=== PATIENT | male | born 1945 | race Caucasian/White ===

== ENCOUNTER 2018-08-29 00:01 | Outpatient (CLI) | payer MEDICARE, OTHER, SELFPAY ==
--- NOTE | 2018-08-29 08:15 | MERGEMPI_ITS ---
*[facility]* *[facility]* [address] [place] [address] Myocardial Perfusion Imaging - SPECT Waylon protocol Date of study: 08/29/2018 *PATIENT PRESENTATION* Height: 180.3cm (71in) Blood Pressure: Weight: 86.4kg (190lb) BSA: 2.09m^2 Referring physician: Heather Pineda Ordering physician: Ajay Kwan MD Impressions: - Normal perfusion by Tc99m Sestamibi Imaging. - Low normal function with septal HK. Summary: 1. Myocardial perfusion imaging: No myocardial perfusion defects noted. 2. The calculated left ventricular ejection fraction after stress: 49%. LV global systolic function is low normal. There is mild hypokinesis involving the anteroseptal and basal and mid inferoseptal wall(s) of the left ventricle. 3. Stress ECG conclusions: The stress ECG is negative. The sensitivity of the exercise part of this test is limited by a failure to achieve target heart rate. 4. Stress: The target heart rate was not achieved. The patient experienced no chest pain during stress. Indication: I25.2. History: REASON FOR TESTING: PATIENT REPORTS HE HAS BEEN HAVING RIGHT ARM ACHING ACCOMPANIED WITH RIGHT HIP ACHING PAIN WITH ACTIVITY OVER THE LAST 2 YEARS THAT HAS GOTTEN WORSE RECENTLY. HE STATES ACHING PAIN, 12/18, GOES AWAY WHEN HE STOPS TO REST. HE DENIES CHEST PAIN UPON ARRIVAL TO TESTING TODAY. SIGNIFICANT PAST MEDICAL HISTORY: AFLUTTER, NSTEMI, CAD, AORTIC VALVE RFEPLACEDMENT, LEFT NEPHRECTOMY. SMOKING STATUS: QUIT 1969. SMOKED FOR 15 YEARS--1/2 PPD. EXERCISE ROUTINE: DAILY ADL'S. ALLERGIES: NO KNOWN ALLERGIES. MEDICATIONS: SILDENAFIL 100 MG PRN, PANTOPRAZOLE 40 MG DAILY, LEVOTHYROXINE 112 MCG DAILY, CARVEDILOL 12.5 MG AM--6.25 MG EVENING, ATORVASTATIN 40 MG DAILY, ASPIRIN 81 MG DAILY, ALLOPURINOL 100 DAILY, TEGRETOL XR 400 MG BID, TORSEMIDE 10 MG DAILY, ACETAMINOPHEN 325 MG PRN.. Imaging Technique: Protocol: Waylon protocol. Acquisition: Gated SPECT; 1 day - rest/stress. The patient was imaged in the supine position. Attenuation correction used. Isotope administration: - Rest. Tc[99m]-sestamibi. Dose: 10.5mCi. Injection time: 08:15 AM. Injection to stress time: 00:45. - Stress. Tc[99m]-sestamibi. Dose: 32.5mCi. Injection time: 09:40 AM. 1-2 min before end of exercise Baseline ECG: SINUS BRADYCARDIA. HR 49. INITIAL BP WAS ELEVATED. Stress protocol: + +---+ + + !Stage !HR !BP (mmHg) !Comments ! + +---+ + + !Baseline supine !49 !108/86 (93) ! ! + +---+ + + !Baseline standing !60 !120/82 (95) ! ! + +---+ + + !Stage I; 1.7mph, 10degrees; 3 min!101!140/80 (100)! ! + +---+ + + !Peak stress !108! ! ! + +---+ + + !Recovery; 1 min !75 !146/84 (105)! ! + +---+ + + !Recovery; 3 min !62 !142/80 (101)! ! + +---+ + + !Recovery; 6 min !59 !120/84 (96) ! ! + +---+ + + !Recovery; 9 min !57 !120/86 (97) ! ! + +---+ + + !1 min !---! !Inject Regadenoson.! + +---+ + + * Stress results: STRESS TEST ENDED IN 3 MINUTES 48 SECONDS DUE TO SOB. NORMAL HEART RATE AND BLOOD PRESSURE RESPONSE TO EXERCISE TESTING. BLOOD PRESSURE INITIALLY HIGH WITH LYING DOWN. THEN DROPPED WHEN STANDING. MAX HEART RATE: 108 74 % OF TARGET HEART RATE ACHIEVED. MET'S: 5.59 NO ECTOPY. NO ANGINA. NO SIGNIFICANT ST SEGMENT CHANGES. TRANSITIONED TO LEXISCAN STRESS DUE TO PATIENT FEELING SOB AND NOT ACHEIVING 85% OF TARGET HEART RATE. STRESS TEST ENDED IN 10 MINUTES 22 SECONDS. NORMAL HEART RATE AND BLOOD PRESSURE RESPONSE TO LEXISCAN INJECTION. NO ECTOPY. NO ANGINA. MILD DOWNSLOPING ST SEGMENTS AT 3 MINUTES 47 SECONDS POST LEXICAN INJECTION. RETURNED TO BASELINE AT 9 MINUTES 4 SECONDS POST LEXISCAN INJECTION. Maximal heart rate during stress was 108bpm (74% of maximal predicted heart rate). The maximal predicted heart rate was 145bpm. The target heart rate was not achieved. The rate-pressure product for the peak heart rate and blood pressure was 69129cn Hg/min. The patient experienced no chest pain during stress. Stress ECG: The stress ECG is negative. The sensitivity of the exercise part of this test is limited by a failure to achieve target heart rate. Myocardial perfusion: Imaging information: gated. Left ventricular size is normal. Right ventricular size is normal. No myocardial perfusion defects noted. Ventricular Function (Wall Motion): The calculated left ventricular ejection fraction after stress: 49%. LV global systolic function is low normal. There is mild hypokinesis involving the anteroseptal and basal and mid inferoseptal wall(s) of the left ventricle. Right ventricular function is normal. Study data: Heather Pineda MD supervised and was readily available during the procedure. This study was interpreted by [facility]. Study status: Routine. Consent: The risks, benefits, and alternatives to the procedure were explained to the patient and informed consent was obtained. Procedure: Initial setup. A baseline ECG was recorded. Surface ECG leads and manual cuff blood pressure measurements were monitored. Heart sounds: Normal. Lung sounds: Normal. Treadmill exercise testing was performed using the Waylon protocol. Study completion: All catheters inserted during the procedure were removed. The patient tolerated the procedure well and was discharged from the lab. Discharge: The patient left the laboratory in stable condition. Birthdate: Patient birthdate: 1945. Sex: Gender: male. Study date: Study date: 08/29/2018. Study time: 00:01 AM. Signature Documentation: - The imaging portion of this study was interpreted by [employer] Communication Skills Instructor Heather Pineda MD. - The Stress ECG portion of this study was interpreted by Heather Pineda MD. Electronically signed by Heather Pineda 08/29/2018 17:17
[2018-08-29] MEDS: Regadenoson 0.4 MG/5 ML SYR IVP (09:00)
== END 2018-08-29 00:21 ==
PROVIDERS: PCP Internal Medicine; Visit Provider Internal Medicine
DX: I25.2 Old myocardial infarction (principal); I48.92 Unspecified atrial flutter; I25.10 Atherosclerotic heart disease of native coronary artery without angina pectoris; Z95.2 Presence of prosthetic heart valve; Z87.891 Personal history of nicotine dependence
CPT/HCPCS: 78452; 93016; 93018; 93017; J2785

== ENCOUNTER 2018-10-30 16:31 | Outpatient (REF) | payer MEDICARE, OTHER, SELFPAY ==
[2018-10-30 22:02] LABS: Anion Gap 11.7 mmol/L (3-11); BUN 39 mg/dL (7-18); CO2 27.3 mmol/L (21.0-32.0); CREATININE 1.86 mg/dL (0.70-1.30); Calcium 9.1 mg/dL (8.5-10.1); Chloride 101 mmol/L (98-107); Estimated GFR 35.59 (mL/min/1.73m2); Glucose 108 mg/dL (70-100); Potassium 4.2 mmol/L (3.5-5.1); Sodium 140 mmol/L (136-145); TSH 14.69 uIU/mL (0.36-3.74)
== END 2018-10-30 16:51 ==
LOC: NCHCN 16:31
PROVIDERS: PCP Internal Medicine; Visit Provider Internal Medicine
DX: I10 Essential (primary) hypertension (principal); E30.9 Disorder of puberty, unspecified
CPT/HCPCS: 80048; 84443

== ENCOUNTER 2019-01-08 16:12 | Outpatient (REF) | payer MEDICARE, OTHER, SELFPAY ==
[2019-01-08 21:44] LABS: Anion Gap 8.2 mmol/L (3-11); BUN 26 mg/dL (7-18); CO2 28.8 mmol/L (21.0-32.0); CREATININE 1.65 mg/dL (0.70-1.30); Calcium 8.6 mg/dL (8.5-10.1); Chloride 105 mmol/L (98-107); Estimated GFR 40.87 (mL/min/1.73m2); Glucose 85 mg/dL (70-100); Potassium 4.2 mmol/L (3.5-5.1); Sodium 142 mmol/L (136-145); TSH 3.62 uIU/mL (0.36-3.74)
== END 2019-01-08 16:32 ==
LOC: NCHCN 16:12
PROVIDERS: PCP Internal Medicine; Visit Provider Internal Medicine
DX: I10 Essential (primary) hypertension (principal); E03.9 Hypothyroidism, unspecified
CPT/HCPCS: 80048; 84443

== ENCOUNTER 2019-02-13 02:02 | Outpatient (CLI) | payer MEDICARE, OTHER, SELFPAY ==
--- NOTE | 2019-02-13 15:45 | DI.MRI_ITS ---
EXAM: MR ABDOMEN WO CLINICAL HISTORY: RT FLANK PAIN,H/O RT NEPHRECTOMY CHILD,WORSENING PAIN OVER THE INCISION. TECHNIQUE: Multiplanar multisequence MRI was performed. COMPARISON: No exams were available for comparison FINDINGS: MR examination of the was performed to evaluate reported symptomatology related to old right flank in cision in a patient who is post right nephrectomy. Note is made of 4 cm in diameter infrarenal abdominal aortic aneurysm. Left kidney unremarkable in appearance with an incidental 13 millimeter cyst. Adrenals not well visualized but grossly unremarkable. Visualized liver and spleen unremarkable. No abdominal wall mass. No evident retroperitoneal adenopathy. No significant abdominal wall hernia in this area by MR criteria. IMPRESSION: No specific abnormality associated with area of old right nephrectomy incision. Incidental 4 cm in d iameter abdominal aortic aneurysm. Incidental 13 millimeter left renal cyst.
== END 2019-02-13 02:22 ==
PROVIDERS: PCP Internal Medicine; Visit Provider Physician Assistant Medical
DX: R10.31 Right lower quadrant pain (principal); Z98.890 Other specified postprocedural states; I71.4 Abdominal aortic aneurysm, without rupture; Z90.5 Acquired absence of kidney
CPT/HCPCS: 74181

== ENCOUNTER 2019-03-19 01:14 | Outpatient (CLI) | payer MEDICARE, OTHER, SELFPAY ==
--- NOTE | 2019-03-19 09:53 | DI.RAD_ITS ---
EXAM: XR RIBS BI INCLUDE CHEST INDICATION: RIB PAIN RT, R07.81, RIB PAIN LT. COMPARISON: PORTABLE CHEST ONE VIEW from 04/24/2015 TECHNIQUE: 2D digital imaging was performed. FINDINGS: The heart size is normal. An aortic valve prosthesis and sternal wires are again noted. The lungs ap pear clear. There is no pneumothorax. No thoracic compression fractures are seen. Multiple views o f both ribs were performed. No rib fractures are visible. Degenerative changes are noted in both sh oulders, greater on the right. IMPRESSION: No visible rib fractures. No acute abnormality.
== END 2019-03-19 01:34 ==
PROVIDERS: PCP Internal Medicine; Visit Provider Internal Medicine
DX: R07.81 Pleurodynia (principal); Z95.2 Presence of prosthetic heart valve
CPT/HCPCS: 71046; 71110

== ENCOUNTER 2019-04-02 05:15 | Outpatient (CLI) | payer MEDICARE, OTHER, SELFPAY ==
--- NOTE | 2019-04-02 10:46 | DI.US_ITS ---
EXAM: US SOFT TISS ABD WALL/LOW BACK CLINICAL HISTORY: SUBCUTANEOUS MASS, R22.9, LUMP ON RT LOWER BACK X 2 YEARS CAUSES PAIN IN RT ARM AN D HIP, SOFT TISSUE US RT LUMBAR AREA TECHNIQUE: Ultrasound performed using standard protocol. COMPARISON: HERNIA INGUINAL from 01/06/2017 FINDINGS: Sonographic evaluation of the right flank/lower back was performed. No cystic or solid masses are se en sonographically. IMPRESSION: Negative ultrasound.
== END 2019-04-02 05:35 ==
PROVIDERS: PCP Internal Medicine; Visit Provider Internal Medicine
DX: R22.2 Localized swelling, mass and lump, trunk (principal)
CPT/HCPCS: 76705

== ENCOUNTER 2019-09-26 03:05 | Outpatient (CLI) | payer MEDICARE, OTHER, SELFPAY ==
--- NOTE | 2019-09-26 | DI.US_ITS ---
EXAM: US PAIN CLINIC NEEDLE GUIDANCE CLINICAL HISTORY: TPI, LOW BACK PAIN, PAIN RT ARM AND HIP, MASS RT SIDE. TECHNIQUE: Ultrasound was performed using standard protocol. COMPARISON: No exams were available for comparison FINDINGS: Sonographic assessment utilizing grayscale and color Doppler imaging was performed and targeted to th e area of clinical concern. Ultrasound was provided for guidance with pain clinic injection of the r ight lower back. Please see procedure note for details. DATA REPOSITORY:
[2019-09-26 12:11] VITALS: BP 154/72; PULSE 53; RESP 14; TEMP 36.3; O2SAT 98
[2019-09-26 12:43] VITALS: PULSE 55; O2SAT 100
[2019-09-26] MEDS: Lidocaine 2% Pres-Free 5 ML VIAL IJ (12:45)
--- NOTE | 2019-09-26 12:46 | PDOC.PAIN_ITS ---
Pain Clinic Procedure Note Procedure Note Procedure Note: ULTRASOUND GUIDED RIGHT Quadratus Lumborum trigger point INJECTIONS Pre-Procedural Evaluation: AAYUSH DAVIS has been referred to the [facility] for an Ultrasound Guided right quadratus lumborum trigger point injection for a chief complaint of right lower back/flank pain. Pre-procedure Pain Score: 6/10 DX: Muscle pain Patient was interviewed and the medical record reviewed. There were no medical, pharmacologic, radiographic, or other structural contraindications to preforming an ultrasound guided injection. Risks and expected side effects as well as potential benefits of the procedure were reviewed. The patient consent form was signed and witnessed. Standard time-out procedure was performed. The use of direct ultrasound visualization of the needle (rather than a non-guided injection) was required to increase patient safety by excluding inadvertent intramuscular, intratendinous, or intraneural needle placement and minimizing bleeding by avoiding osteochondral or vascular injury from the needle. Additionally, the increased accuracy of placement may increase clinical effectiveness and will allow higher diagnostic specificity when evaluating effectiveness of this injection. Procedure Description: The patient was placed in the prone position and automated blood pressure cuff and pulse oximeter applied for monitoring during the procedure and recorded in the medical record. Pre-injection ultrasound scanning of the area of interest was performed using linear transducer, identifying relevant anatomy, landmarks, and neurovascular structures allowing for optimal needle path. The site was then prepared in the usual sterile fashion, using thorough Chlorhexadine preparation of the skin and sterile draping. The same ultrasound transducer was then passed into the sterile field using sterile probe cover and sterile ultrasound gel. The injection target was again visualized. Skin and subcutaneous tissues were anesthetized with 2 mL of 1% Lidocaine. A 21 guage Pajunk 100mm needle was placed under live ultrasound guidance, using an in-plane approach, to the target area. After visualization of the needle tip at the target area, 3 cc of 2% Lidocaine was delivered after negative aspiration for blood. Several passes were made through the muscle belly, making sure not to make it to the anterior aspect of the muscle. Ultrasound images were captured and stored for documentation purposes. Post-procedure Pain Score:1/10 Vital signs were stable throughout the procedure and were as recorded in the d ocflowsheet by the nursing staff. Follow up plans and appointments were discussed with the patient.Post procedure instruction was given as documented in nursing documentation and having met discharge criteria, they were discharged from the [facility]. COMMENTS: I did discuss stretching exercises with him. No steroids were used during this procedure.
== END 2019-09-26 03:25 ==
PROVIDERS: PCP Internal Medicine; Visit Provider Preventive Medicine Occupational Medicine
DX: M54.5 Low back pain (principal); M79.18 Myalgia, other site
CPT/HCPCS: 20552; 76942

== ENCOUNTER 2020-01-05 16:58 | Emergency (ER) | payer MEDICARE, OTHER, SELFPAY ==
[2020-01-05 17:07] VITALS: BP 150/68; PULSE 54; RESP 20; TEMP 36.5; O2SAT 98
--- NOTE | 2020-01-05 17:15 | DI.RAD_ITS ---
EXAM: XR FOOT LT COMPLETE CLINICAL HISTORY: dorsal puncture, pain. TECHNIQUE: 2D digital imaging was performed. COMPARISON: No exams were available for comparison FINDINGS: BONES: No acute fracture is present. No bony destructive lesion is seen. JOINTS: No dislocation present. SOFT TISSUE: Air in the soft tissues overlying tarsal region. No foreign body. IMPRESSION: Unremarkable radiographs of the left foot. DATA REPOSITORY: RADIATION DOSE DELIVERED:
--- NOTE | 2020-01-05 17:24 | ED.GENADUL_ITS ---
Discharge Plan Disposition Patient Disposition: HOME Condition: Stable Discharge Details Clinical Impression: Puncture wound of foot, left Primary Care Provider: Ajay Kwan ED Provider: Stan James Home Meds and New Rx's Prescriptions: New cephalexin 500 mg capsule 500 mg PO TID 7 Days Qty: 21 RF: 0 Continued acetaminophen 500 mg capsule 500 mg PO DAILY PRNRF: 0 carbamazepine 200 mg tablet 200 mg PO BID RF: 0 cyclobenzaprine 5 mg tablet 5 mg PO BID RF: 0 carvedilol 12.5 MG tablet 12.5 mg PO BID RF: 0 levothyroxine 100 mcg tablet 125 mcg PO DAILY RF: 0 pantoprazole 40 mg tablet,delayed release (DR/EC) 40 mg PO DAILY PRNRF: 0 allopurinol 100 MG tablet 100 mg PO DAILY RF: 0 atorvastatin 20 MG tablet 40 mg PO DAILY RF: 0 aspirin [Aspir-Low] 81 MG tablet,delayed release (DR/EC) 81 mg PO DAILY RF: 0 torsemide 10 mg tablet 10 mg PO DAILY RF: 0 Discharge Instructions Instructions: Puncture Wound (ED) Additional Instructions: Please take Keflex as prescribed. Once daily gentle soap and water cleanse of wound, pat dry and replace Band-Aid. Return to the ER if you develop a fever, foul-smelling discharge from the wound or any other acute concerns. Medical Decision Making Pleasant 74-year-old male was working on a piece of farm equipment when it fell and punctured through his sneaker into his left foot on the dorsum. There was no puncture through the sneaker sole. He cleaned the wound and presented to the ER. His tetanus is out of date and was updated in the ED. Referred for x-ray to rule out foreign object or bony injury. There are no radiopaque foreign body seen and no acute fracture or subluxation. Given the lack of involvement of the plantar surface, do not feel he requires coverage for Pseudomonas. More likely to be staph or strep. Wound cleansed and patient be placed on Keflex. He stable and appropriate discharge to home. HPI General Mode of arrival: ambulatory . Date/Time Provider Initiated Documentation: 01/05/20 16:59 . Limitations to Documentation: no limitations . Information obtained by: patient . History of Present Illness 74 year old M presents to the emergency department with the chief complaint of Left foot puncture wound, described as moderate, Quality is described as dull and constant, and is localized to the left and lower extremity. Patient started experiencing this minute(s) and it has been constant. No relieving factors improve symptom(s), No exacerbating factors reported . Patient did receive the following treatments prior to arrival, none Related Data Home Medications Medication Instructions Recorded Confirmed allopurinol 100 mg PO DAILY 04/07/13 01/05/20 aspirin [Aspir-Low] 81 mg PO DAILY 07/30/14 01/05/20 atorvastatin 40 mg PO DAILY 07/30/14 01/05/20 carvedilol 12.5 mg PO BID tab-cap 08/11/16 01/05/20 acetaminophen 500 mg capsule 500 mg PO DAILY PRN cap 05/06/19 01/05/20 carbamazepine 200 mg tablet 200 mg PO BID 05/06/19 01/05/20 cyclobenzaprine 5 mg tablet 5 mg PO BID tab 05/06/19 01/05/20 levothyroxine 100 mcg tablet 125 mcg PO DAILY tab-cap 05/06/19 01/05/20 pantoprazole 40 mg tablet,delayed 40 mg PO DAILY PRN tab-cap 05/06/19 01/05/20 release cephalexin 500 mg PO TID 7 Days #21 [facility] 01/05/20 torsemide 10 mg PO DAILY 01/05/20 01/05/20 Previous Rx's Medication Instructions Recorded cephalexin 500 mg PO TID 7 Days #21 [facility] 01/05/20 Allergies Allergy/AdvReac Type Severity Reaction Status Date / Time No Known Allergies Allergy Unverified 01/05/20 17:10 General Stated Complaint: Laceration KATARINA: 4 Review of Systems Narrative: No other injury. Tetanus out of date. Able to walk on the foot. 4 systems reviewed and otherwise negative [facility] Medical History Anemia Aortic stenosis Atrial flutter CAD (coronary artery disease) Degeneration of cervical intervertebral disc Dyspnea on exertion Gout History of nephrectomy Hx of atrial flutter Hx of gastric ulcer Hx of non-ST elevation myocardial infarction (NSTEMI) Hypothyroidism IBS (irritable bowel syndrome) Intermittent claudication Internal hemorrhoids Lumbar back pain Myalgia Paresthesia Primary osteoarthritis, left shoulder Renal insufficiency Right flank pain Surgical History Fracture, Open Treatment left femor ORIf Nephrectomy left Replacement of aortic valve Social History (Updated 05/06/19 @ 09:04 by Carolyne Booker) Smoking/Tobacco Use Status: Former Tobacco Use Alcohol Intake: current Alcohol Intake frequency: 0-2 drinks per day Alcohol type: hard liquor Drug use: Never Substance use type: does not use Do you feel safe at home: Yes Do you feel safe in your relationship?: Yes Exam Narrative Exam Narrative: GEN: awake, alert, oriented 3. Pleasant, well groomed, interactive. HEAD: Normocephalic, atraumatic EYES: PERRL, EOMI CHEST/RESP: No respiratory distress EXT: Full ROM, the left foot dorsum has a puncture wound approximately 1.5 x 0.5 cm with surrounding tenderness. No active bleeding. Distal metatarsal bones are nontender, range of motion is intact, palpable 2+ DP bilaterally. Neuro: Grossly normal neurologic exam, conversant, interactive. Psych: Speech fluent, thoughts congruent, affect normal Course Vital Signs Vital signs: Vital Signs Temperature 36.5 C 01/05/20 17:07 Pulse 54 L 01/05/20 17:07 Respiratory Rate 01/05/20 17:07 Blood Pressure 150/68 H 01/05/20 17:07 Pulse Oximetry 98 01/05/20 17:07 Temperature 36.5 C 01/05/20 17:07 Temperature Source Skin 01/05/20 17:07 Pulse 54 L 01/05/20 17:07 Respiratory Rate 01/05/20 17:07 Respiratory Effort Non-Labored 01/05/20 17:17 Blood Pressure 150/68 H 01/05/20 17:07 Blood Pressure Position Sitting 01/05/20 17:07 Pulse Oximetry 98 01/05/20 17:07 Oxygen Delivery Method Room Air 01/05/20 17:07 Oxygen Flow Rate 0 01/05/20 17:07 Pain Level 7 01/05/20 17:07
--- NOTE | 2020-01-05 17:50 | DI.VRAD_ITS ---
PROCEDURE INFORMATION: Exam: XR Left Foot Complete Exam date and time: 01/05/2020 17:38 Age: 74 years old Clinical indication: Pain; Foot; Left; Patient HX: Dorsal puncture wound TECHNIQUE: Imaging protocol: XR Left foot. Views: 3 or more views. COMPARISON: No relevant prior studies available. FINDINGS: Bones/joints: Mild first metatarsal phalangeal degerative changes. No acute fracture or subluxation. Soft tissues: No radiopaque foreign body is seen. Small dorsal midfoot wound. Vasculature: Atherosclerosis. IMPRESSION: No acute bony pathology. Dictated and Authenticated by: Quita Patel MD. Ordering:ESTHER Pierce MD
[2020-01-05] MEDS: Tetanus & Diphtheria Tox,ADULT 0.5 ML VIAL IM (18:04)
[2020-01-05] MEDS: Cephalexin 500 MG CAP, 2 CAPS/BTL PO (18:05)
== END 2020-01-05 18:10 | disposition home or self-care (01) ==
PROVIDERS: Emergency Provider Emergency Medicine; PCP Internal Medicine
DX: S91.332A Puncture wound without foreign body, left foot, initial encounter (principal); W30.2XXA Contact with hay derrick, initial encounter
CPT/HCPCS: 90471; 99284; 73630; 99283

== ENCOUNTER 2020-01-09 10:26 | Outpatient (CLI) | payer MEDICARE, OTHER, SELFPAY ==
--- NOTE | 2020-01-09 11:06 | DI.RAD_ITS ---
EXAM: XR CHEST 2V PA LATERAL CLINICAL HISTORY: PREOP EXAM, Z01.818, RESPIRATORY CRACKLES, LOWER LOBES, R09.89 TECHNIQUE: 2D digital imaging was performed. COMPARISON: CR XR RIBS BI INCLUDE CHEST from 03/19/2019 FINDINGS: The heart size is within normal limits. Sternal wires and aortic valve prosthesis are again noted. The aorta is ectatic. No infiltrate, effusion or pulmonary edema is seen. There are no thoracic co mpression fractures. IMPRESSION: No acute abnormality.
--- NOTE | 2020-01-09 11:15 | RT.EKG_ITS ---
APPROVED REPORT Exam: Resting ECG Patient Location: O HR:46 bpm ECG Measurements Heart Rate 46 AXIS NC 215 P 50 QRSd 109 QRS 16 QT 454 T 34 QTc 399 Conclusion Sinus bradycardia...rate< 60
== END 2020-01-09 10:46 ==
LOC: DI 10:27 → RT 10:28
PROVIDERS: PCP Internal Medicine; Visit Provider Family Medicine
DX: Z01.818 Encounter for other preprocedural examination (principal); R09.89 Other specified symptoms and signs involving the circulatory and respiratory systems; R00.1 Bradycardia, unspecified; Z95.4 Presence of other heart-valve replacement; R06.00 Dyspnea, unspecified
CPT/HCPCS: 36415; 80048; 85027; 71046; 83880; 93005; 93010

== ENCOUNTER 2020-01-09 11:40 | Outpatient (CLI) | payer MEDICARE, OTHER, SELFPAY ==
[2020-01-09 12:20] LABS: HCT 36.2 % (40.0-50.0); HGB 11.8 g/dL (13.5-17.5); MCH 32.9 pg (27.0-33.0); MCHC 32.6 % (32.0-36.0); MCV 100.8 fL (80-95); MPV 9.5 fL (8.0-11.0); Platelet Count 156 10^3/uL (130-400); RBC 3.59 10^6/uL (4.36-5.78); RDW 13.8 % (11.8-14.1); RDW-SD 51.1 fL; WBC 5.33 10^3/uL (4.4-10.8)
[2020-01-09 12:56] LABS: Anion Gap 6.6 mmol/L (3-11); BUN 34 mg/dL (7-18); CO2 30.4 mmol/L (21.0-32.0); CREATININE 1.61 mg/dL (0.70-1.30); Calcium 9.2 mg/dL (8.5-10.1); Chloride 103 mmol/L (98-107); Estimated GFR 41.93 (mL/min/1.73m2); Glucose 102 mg/dL (74-106); NT-proBNP 398 pg/mL (<300); Potassium 4.4 mmol/L (3.5-5.1); Sodium 140 mmol/L (136-145)
== END 2020-01-09 12:00 ==
PROVIDERS: PCP Internal Medicine; Visit Provider Family Medicine
DX: R06.00 Dyspnea, unspecified (principal); R09.89 Other specified symptoms and signs involving the circulatory and respiratory systems; Z01.818 Encounter for other preprocedural examination
CPT/HCPCS: 36415; 80048; 85027; 83880

== ENCOUNTER 2020-02-04 09:19 | Outpatient (CLI) | payer MEDICARE, OTHER, SELFPAY ==
--- NOTE | 2020-02-04 | DI.RAD_ITS ---
EXAM: XR SCAPULA LT CLINICAL HISTORY: LT SCALPALGIA, M89.8X1 TECHNIQUE: COMPARISON: No exams were available for comparison FINDINGS: Two views of the scapula were obtained. There is question of a lucent lesion of the inferior aspect scapula. There are apparent rib fractures 7th and 8th ribs posteriorly. These are of uncertain age. IMPRESSION: Incompletely visualized question lytic focus of inferior portion of the scapula, this could represent a lytic lesion or fracture or merely represent artifact. Additional evaluation with CT of the scapu la recommended. Left rib fractures noted as described above as well. RADIATION DOSE DELIVERED: Total DLP
== END 2020-02-04 09:39 ==
PROVIDERS: PCP Internal Medicine; Visit Provider Nurse Practitioner Family
DX: M25.512 Pain in left shoulder (principal)
CPT/HCPCS: 73010

== ENCOUNTER 2020-02-04 19:34 | Outpatient (REF) | payer MEDICARE, OTHER, SELFPAY ==
[2020-02-04 21:08] LABS: FREE T4 0.94 ng/dL (0.76-1.46); TSH 3.62 uIU/mL (0.36-3.74)
== END 2020-02-04 19:54 ==
LOC: NCHCN 19:34
PROVIDERS: PCP Internal Medicine; Visit Provider Internal Medicine
DX: E03.9 Hypothyroidism, unspecified (principal)
CPT/HCPCS: 84439; 84443

== ENCOUNTER 2020-02-14 04:28 | Outpatient (CLI) | payer MEDICARE, OTHER, SELFPAY ==
--- NOTE | 2020-02-14 | DI.CT_ITS ---
EXAM: CT UPPER EXTREMITY LT WO CLINICAL HISTORY: SCAPULALGIA LT, M89.8x1. TECHNIQUE: Imaging Protocol: Axial computed tomography images with coronal and sagittal reformatted images were created and reviewed. COMPARISON: CR XR SCAPULA LT from 02/04/2020 FINDINGS: Bones: There are mildly displaced fractures of the posterior aspects of the left 7th, 8th and 9th ri bs. The scapula is intact no evidence of a scapular fracture. No lytic or sclerotic lesion is seen. Sternal wires are in place. Degenerative changes are seen in the visualized portions of the thorac ic spine. Visualized lung is clear. The soft tissues are unremarkable. No cellulitic or osteomyeli tic changes are identified. Soft Tissues: Normal. IMPRESSION: 1. Unremarkable left scapula. 2. Mildly displaced fractures of the posterior left 7th, 8th and 9th ribs. RADIATION DOSE DELIVERED: 365.52mGy.cm Total DLP 365.52mGy.cm Total DLP DATA REPOSITORY: All CT scans at this facility are submitted to the National Radiology Data Registry (NRDR) Dose Index Registry (DIR) with the [employer] (ACR). RADIATION OPTIMIZATION: All CT scans at this facility use at least one of these dose optimization te chniques: automated exposure control; mA and/or kV adjustment per patient size (includes targeted exa ms where dose is matched to clinical indication); or iterative reconstruction.
== END 2020-02-14 04:48 ==
PROVIDERS: PCP Internal Medicine; Visit Provider Nurse Practitioner Family
DX: M89.8X1 Other specified disorders of bone, shoulder (principal); S22.42XA Multiple fractures of ribs, left side, initial encounter for closed fracture
CPT/HCPCS: 73200

== ENCOUNTER 2020-08-01 18:56 | Emergency (ER) | payer MEDICARE, OTHER, SELFPAY ==
[2020-08-01 19:03] VITALS: BP 156/61; PULSE 52; RESP 16; TEMP 36.5; O2SAT 96
--- NOTE | 2020-08-01 19:15 | DI.CT_ITS ---
EXAM: CT CHEST W CLINICAL HISTORY: right scapula thorax pain after fall. TECHNIQUE: Multi planar reconstructions were performed. CONTRAST MATERIAL: Omnipaque 350; 75 cc COMPARISON: No exams were available for comparison FINDINGS: CHEST: LUNGS: There is a nodular infiltrate in the left upper lobe which measures 1.3 x 1.4 cm and will requ ronny follow-up to rule out malignancy. No other nodular density in left parahilar region is noted. M ild increased density in the inferior lingular segment noted. Benign-appearing increased markings ar e noted in both lower lobes. There are no pleural effusions. No significant focal findings in the t rachea and mainstem bronchi. MEDIASTINUM: There is no hilar nor mediastinal adenopathy. Visualized thyroid unremarkable. CARDIAC: Sternotomy wires. Cardiomegaly. Prosthetic aortic valve.Caliber of the thoracic aorta is w ithin normal limits. VISUALIZED UPPER ABDOMEN:There are no significant adrenal masses. Gallstones noted. OSSEOUS: No significant osseous lesions.Healed fractures of multiple left-sided ribs noted. No acute fractures evident.. IMPRESSION: 1. No evidence of acute post-traumatic injury in the chest. 2. Incidentally noted is a left upper lobe 13 x 14 millimeter nodular infiltrate which require approp riate follow-up to rule out neoplasm. 3. No pleural effusions. RADIATION DOSE DELIVERED: 479.66mGy.cm Total DLP DATA REPOSITORY: All CT scans at this facility are submitted to the National Radiology Data Registry (NRDR) Dose Index Registry (DIR) with the [employer] (ACR). RADIATION OPTIMIZATION: All CT scans at this facility use at least one of these dose optimization te chniques: automated exposure control; mA and/or kV adjustment per patient size (includes targeted exa ms where dose is matched to clinical indication); or iterative reconstruction.
--- NOTE | 2020-08-01 19:15 | DI.CT_ITS ---
EXAM: CT HEAD CERVICAL SPINE WO CLINICAL HISTORY: fall, HI and neck pain. TECHNIQUE: Imaging Protocol: Axial computed tomography images with coronal and sagittal reformatted images were created and reviewed COMPARISON: No exams were available for comparison FINDINGS: BRAIN: There are no skull fractures nor fluid in the visualized paranasal sinuses. There is no evidence of intracranial hemorrhage, mass effect, or shift of midline structures. There are no extra-axial fluid collections. The ventricles are not enlarged or shifted and there is no blo od within the ventricular system nor within the basal cisterns. Is a small hypodensity in the anterior limb of the right internal capsule noted. Probable small lacu ne or infarct. No hemorrhage. CERVICAL SPINE: There is no evidence of fracture nor listhesis. No significant prevertebral soft tissue swelling. Multilevel chronic degenerative disc disease noted. Also multilevel facet arthropathy. There is no significant facet joint malalignment. No significant osseous lesions evident. IMPRESSION: No acute intracranial findings on this noninfused CT scan of the brain.Small lacunar infarct in the a nterior limb of the right internal capsule, age indeterminate. No hemorrhage. No evidence of cervical spine fracture, malalignment, nor acute compromise of the cervical spinal can al. Chronic cervical spine degenerative changes. RADIATION DOSE DELIVERED: 1,361.39mGy.cm Total DLP DATA REPOSITORY: All CT scans at this facility are submitted to the National Radiology Data Registry (NRDR) Dose Index Registry (DIR) with the [employer] (ACR). RADIATION OPTIMIZATION: All CT scans at this facility use at least one of these dose optimization te chniques: automated exposure control; mA and/or kV adjustment per patient size (includes targeted exa ms where dose is matched to clinical indication); or iterative reconstruction.
--- NOTE | 2020-08-01 19:51 | W.ED.GENAD ---
Discharge Plan Disposition Patient Disposition: HOME Condition: Good Discharge Details Clinical Impression: Contusion, Cervical muscle strain Primary Care Provider: Ajay Kwan ED Provider: Zulma Esquivel Home Meds and New Rx's Prescriptions: New oxycodone 5 mg tablet 5 mg PO Q8H PRNQty: 5 RF: 0 No Action acetaminophen 500 mg capsule 500 mg PO DAILY PRNRF: 0 carbamazepine 200 mg tablet 200 mg PO BID RF: 0 cyclobenzaprine 5 mg tablet 5 mg PO BID RF: 0 carvedilol 12.5 MG tablet 12.5 mg PO BID RF: 0 levothyroxine 100 mcg tablet 125 mcg PO DAILY RF: 0 pantoprazole 40 mg tablet,delayed release (DR/EC) 40 mg PO DAILY PRNRF: 0 allopurinol 100 MG tablet 100 mg PO DAILY RF: 0 atorvastatin 20 MG tablet 40 mg PO DAILY RF: 0 aspirin [Aspir-Low] 81 MG tablet,delayed release (DR/EC) 81 mg PO DAILY RF: 0 torsemide 10 mg tablet 10 mg PO DAILY RF: 0 Discharge Instructions Instructions: Cervical Strain (ED), Contusion in Adults (ED) Additional Instructions: Follow-up with your primary care physician for repeat evaluation next week Take Tylenol as needed for discomfort, I have written you for several tablets of stronger medication should he need it, be aware that this medication is addictive and can make you constipated, take MiraLAX if you choose to take this medication and do not drive for 8 hours Please return should you have new or worsening complaints including strength or sensation change Please talk to your doctor on Monday regarding left upper lung nodule that you will need close outpatient follow-up regarding Medical Decision Making CT scan does not show evidence of acute pathology of patient head, cervical spine, or thorax He does have evidence of a left upper lobe mass which she will need close outpatient follow-up regarding, patient is instructed to follow-up with his primary care physician regarding this finding He was given several doses of opiate analgesia should he need it Return precautions discussed and patient expressed understanding Patient ambulatory with steady gait at time of discharge home Patient does have right hip tenderness, he states this is baseline for him There is no evidence of crepitus or deformity, low suspicion for fracture Differential Diagnosis Differential Diagnosis: Scapula fracture, hematoma, pneumothorax, subdural hematoma Medical Records Medical records reviewed: Yes I reviewed the patient's medical records. Lab Data Lab results reviewed: Yes I reviewed the patient's lab results. HPI This 75-year-old male presents with report of fall. Patient states he tripped over the deck of his tractor and landed on his right shoulder and hit his head. There is no loss of consciousness. Event occurred an hour prior to arrival. Denies nausea or vomiting. States he has pain to his right scapula as well. Denies any anterior chest pain or shortness of breath. Denies any new pain to his abdomen or lower extremities. He does have chronic hip pain, this is not worsened at this time. He denies any strength or sensation changes. He denies anticoagulation. He does take a baby aspirin General Date/Time Provider Initiated Documentation: 08/01/20 19:11. Related Data Home Medications Medication Instructions Recorded Confirmed allopurinol 100 mg PO DAILY 04/07/13 08/01/20 aspirin [Aspir-Low] 81 mg PO DAILY 07/30/14 08/01/20 atorvastatin 40 mg PO DAILY 07/30/14 08/01/20 carvedilol 12.5 mg PO BID tab-cap 08/11/16 08/01/20 acetaminophen 500 mg capsule 500 mg PO DAILY PRN cap 05/06/19 08/01/20 carbamazepine 200 mg tablet 200 mg PO BID 05/06/19 08/01/20 cyclobenzaprine 5 mg tablet 5 mg PO BID tab 05/06/19 08/01/20 levothyroxine 100 mcg tablet 125 mcg PO DAILY tab-cap 05/06/19 08/01/20 pantoprazole 40 mg tablet,delayed 40 mg PO DAILY PRN tab-cap 05/06/19 08/01/20 release torsemide 10 mg PO DAILY 01/05/20 08/01/20 oxycodone 5 mg PO Q8H PRN #5 tab 08/01/20 Previous Rx's Medication Instructions Recorded oxycodone 5 mg PO Q8H PRN #5 tab 08/01/20 Allergies Allergy/AdvReac Type Severity Reaction Status Date / Time No Known Allergies Allergy Unverified 08/01/20 19:08 General Stated Complaint: Orthopedic KATARINA: 2 Review of Systems Narrative: Review of systems obtained x7 aside from where indicated in [facility] Medical History Anemia Aortic stenosis Atrial flutter CAD (coronary artery disease) Degeneration of cervical intervertebral disc Dyspnea on exertion Gout History of nephrectomy Hx of atrial flutter Hx of gastric ulcer Hx of non-ST elevation myocardial infarction (NSTEMI) Hypothyroidism IBS (irritable bowel syndrome) Intermittent claudication Internal hemorrhoids Lumbar back pain Myalgia Paresthesia Primary osteoarthritis, left shoulder Renal insufficiency Right flank pain Surgical History Fracture, Open Treatment left femor ORIf Nephrectomy left Replacement of aortic valve Social History (Updated 05/06/19 @ 09:04 by Carolyne Booker) Smoking/Tobacco Use Status: Former Tobacco Use Smoking risk assessment performed?: Yes Alcohol Intake: current Alcohol Intake frequency: 0-2 drinks per day Alcohol type: hard liquor Drug use: Never Substance use type: does not use Do you feel safe at home: Yes Do you feel safe in your relationship?: Yes Exam Const General: cooperative and no acute distress HENMT Other: Small hematoma noted to occipital region, no hemotympanum, uvula midline Eyes Pupils: PERRL Neck Other: Paraspinal muscle tenderness, no crepitus Chest Chest: normal inspection of the chest Resp Effort & Inspection: normal respiratory effort Auscultation: clear to auscultation bilaterally Cardio Rate: regular rate Rhythm: regular rhythm GI Other: No abdominal tenderness, no CVA tenderness Back/Spine/Pelvis Other: No lumbar spine or thoracic tenderness, tenderness to palpation over right scapula, no crepitus, no CVA tenderness Skin General skin exam: no rashes or lesions noted Neuro General: patient alert and patient oriented x3 Cranial Nerves: CN's II-XI intact bilaterally Sensory Exam: no sensory deficits noted Other: GCS 15 Extrem Other: No tenderness with palpation to bilateral upper extremities, tenderness with palpation to right hip, no crepitus or visible sign of trauma, no tenderness to right knees bilaterally, distal pulses intact all 4 extremities Course Vital Signs Vital signs: Vital Signs Temperature 36.5 C 08/01/20 19:03 Pulse 52 L 08/01/20 19:03 Respiratory Rate 16 08/01/20 19:03 Blood Pressure 156/61 H 08/01/20 19:03 Pulse Oximetry 96 08/01/20 19:03 Temperature 36.5 C 08/01/20 19:03 Temperature Source Skin 08/01/20 19:03 Pulse 52 L 08/01/20 19:03 Respiratory Rate 16 08/01/20 19:03 Respiratory Effort Non-Labored 08/01/20 19:11 Blood Pressure 156/61 H 08/01/20 19:03 Blood Pressure Position Supine 08/01/20 19:03 Pulse Oximetry 96 08/01/20 19:03 Oxygen Delivery Method Room Air 08/01/20 19:03 Oxygen Flow Rate 0 08/01/20 19:03 Pain Level 10 08/01/20 19:12
[2020-08-01] MEDS: fentaNYL 100 MCG/2 ML VIAL 50 MCG IVP (19:54)
[2020-08-01 19:55] VITALS: BP 148/70; PULSE 56; RESP 16; O2SAT 96
[2020-08-01 20:10] LABS: Abs Immature Grans 0.03 10^3/uL (0.0-0.06); Absolute Basophil Count 0.02 10^3/uL (0.0-0.2); Absolute Lymphocyte Count 0.48 10^3/uL (1.2-3.4); Absolute Monocyte Count 0.52 10^3/uL (0.1-0.8); Absolute Neutrophil Count 6.39 10^3/uL (1.2-6.7); Basophils % 0.3; Eosinophils % 2.6; HCT 33.7 % (40.0-50.0); HGB 11.3 g/dL (13.5-17.5); Immature Grans % 0.4; Lymphocytes % 6.3; MCH 33.5 pg (27.0-33.0); MCHC 33.5 % (32.0-36.0); Monocytes % 6.8; Neutrophils % 83.6; Nucleated RBC 0 %; Platelet Count 128 10^3/uL (130-400); RBC 3.37 10^6/uL (4.36-5.78); RDW 13.2 % (11.8-14.1); RDW-SD 48.1 fL; WBC 7.64 10^3/uL (4.4-10.8)
[2020-08-01 20:35] LABS: ALT 30 U/L (16-63); AST 26 U/L (15-37); Albumin 3.6 g/dL (3.4-5.0); Alkaline Phosphatase 159 U/L (46-116); Anion Gap 6.8 mmol/L (3-11); BUN 39 mg/dL (7-18); Bilirubin, Total 0.3 mg/dL (0.2-1.0); CO2 30.2 mmol/L (21.0-32.0); CREATININE 0.9 mg/dL (0.70-1.30); Calcium 9.4 mg/dL (8.5-10.1); Chloride 105 mmol/L (98-107); Glucose 104 mg/dL (74-106); Potassium 4.5 mmol/L (3.5-5.1); Sodium 142 mmol/L (136-145)
[2020-08-01] MEDS: Normal Saline - Diluent 50 ML VIAL IV (21:28)
--- NOTE | 2020-08-01 21:34 | DI.VRAD_ITS ---
PROCEDURE INFORMATION: Exam: CT Head Without Contrast Exam date and time: 08/01/2020 9:10 PM Age: 75 years old Clinical indication: Injury or trauma; Patient HX: Fall, hi and neck pain TECHNIQUE: Imaging protocol: Computed tomography of the head without contrast. COMPARISON: No relevant prior studies available. FINDINGS: Brain: Diffuse age-appropriate atrophy. No hemorrhage. Mild chronic white matter small vessel changes. Old lacunar size infarct in the anterior right internal capsule adjacent to the caudate nucleus head.. No mass effect. Cerebral ventricles: No ventriculomegaly. Bones/joints: Unremarkable. No acute fracture. Paranasal sinuses: Visualized sinuses are unremarkable. No fluid levels. Mastoid air cells: Visualized mastoid air cells are well aerated. Soft tissues: Unremarkable. IMPRESSION: 1. No acute intracranial abnormality. 2. Age-appropriate diffuse mild atrophy. 3. No intracranial hemorrhage. No cerebral edema. 4. No skull fracture. PROCEDURE INFORMATION: Exam: CT Cervical Spine Without Contrast Exam date and time: 08/01/2020 9:10 PM Age: 75 years old Clinical indication: Injury or trauma; Patient HX: Fall, hi and neck pain TECHNIQUE: Imaging protocol: Computed tomography images of the cervical spine without contrast. COMPARISON: No relevant prior studies available. FINDINGS: Bones/joints: No acute fracture. Normal alignment. Degenerative disc and joint disease at multiple levels. Sternotomy wires. Discs/Spinal canal/Neural foramina: No significant disc protrusion. No severe spinal canal stenosis. No significant neural foraminal narrowing. Lungs: Left upper lobe nodule or masslike focus measuring 9 x 8 mm. See series 9, image 348 with lung window application. Patient has a CT chest pending. Please see that report for additional detail about this focus. Soft tissues: Atherosclerotic calcium of the carotid arteries bilaterally. IMPRESSION: 1. No acute findings. Degenerative cervical spine changes. No acute fracture or dislocation. 2. Left upper lobe lung nodule suggested measuring 9 x 8 mm. Please see pending CT chest for additional detail. Dictated and Authenticated by: Jimy Davis MD. Ordering:RACHEL Maya MD
--- NOTE | 2020-08-01 21:39 | DI.VRAD_ITS ---
PROCEDURE INFORMATION: Exam: CT Chest With Contrast; Diagnostic Exam date and time: 08/01/2020 9:19 PM Age: 75 years old Clinical indication: Injury or trauma; Patient HX: Right scapula/thorax pain after fall TECHNIQUE: Imaging protocol: Diagnostic computed tomography of the chest with contrast. 3D rendering (Not supervised by radiologist): MIP and/or 3D reconstructed images were created by the technologist. COMPARISON: CR XR CHEST 2V PA LATERAL 01/09/2020 10:58 AM FINDINGS: Lungs: Left upper lobe posterior ill-defined nodular opacity at the apical level. Pleural spaces: Unremarkable. No pneumothorax. No pleural effusion. Heart: Unremarkable. No cardiomegaly. No pericardial effusion. Mediastinal space: Small hiatal hernia. Aorta: Moderate atherosclerotic change present in the vasculature. Lymph nodes: Unremarkable. No enlarged lymph nodes. Gallbladder and bile ducts: Gallstones layering in the gallbladder. Bones/joints: Status post median sternotomy. Old left-sided rib fractures. No acute fracture seen of the ribs or scapulae. Soft tissues: Unremarkable. IMPRESSION: No evidence for acute posttraumatic abnormality. Dictated and Authenticated by: Karen Maldonado MD. Ordering:RACHEL Maya MD
[2020-08-01] MEDS: oxyCODONE 5 mg/Acetaminophen 325 mg TAB 1 TAB PO (22:25)
== END 2020-08-01 22:35 | disposition home or self-care (01) ==
PROVIDERS: Emergency Provider Physician Assistant; PCP Internal Medicine
DX: M25.511 Pain in right shoulder (principal); S00.03XA Contusion of scalp, initial encounter; S16.1XXA Strain of muscle, fascia and tendon at neck level, initial encounter; M25.551 Pain in right hip; V84.4XXA Person injured while boarding or alighting from special agricultural vehicle, initial encounter; R91.8 Other nonspecific abnormal finding of lung field
CPT/HCPCS: 36415; 80053; 96374; 99285; 70450; 71260; 72125; 85025; 99284; J3010

== ENCOUNTER 2021-02-09 11:10 | Outpatient (REF) | payer MEDICARE, OTHER, SELFPAY ==
[2021-02-09 21:12] LABS: HGB 11.1 g/dL (13.5-17.5); MCH 33.2 pg (27.0-33.0); MCHC 32.6 % (32.0-36.0); MCV 101.8 fL (80-95); MPV 9.7 fL (8.0-11.0); Platelet Count 138 10^3/uL (130-400); RBC 3.34 10^6/uL (4.36-5.78); RDW 13.6 % (11.8-14.1); RDW-SD 50.5 fL; WBC 4.58 10^3/uL (4.4-10.8)
[2021-02-09 21:39] LABS: ALT 21 U/L (16-63); AST 15 U/L (15-37); Alkaline Phosphatase 126 U/L (46-116); Anion Gap 7.4 mmol/L (3-11); BUN 36 mg/dL (7-18); Bilirubin, Total 0.5 mg/dL (0.2-1.0); CO2 30.6 mmol/L (21.0-32.0); CREATININE 1.6 mg/dL (0.70-1.30); Calcium 8.8 mg/dL (8.5-10.1); Calculated LDL 101 mg/dL (<100); Chloride 105 mmol/L (98-107); Cholesterol 162 mg/dL (<200); Estimated GFR 42.12 (mL/min/1.73m2); Glucose 99 mg/dL (74-106); HDL Cholesterol 44 mg/dL (40-60); Potassium 4.6 mmol/L (3.5-5.1); Sodium 143 mmol/L (136-145); TSH 7.23 uIU/mL (0.36-3.74); Total Protein 7.1 g/dL (6.4-8.2); Triglyceride 88 mg/dL (<150)
[2021-02-09 21:58] LABS: FREE T4 0.84 ng/dL (0.76-1.46)
== END 2021-02-09 11:11 | disposition home or self-care (01) ==
LOC: NCHCN 11:10
PROVIDERS: PCP Internal Medicine; Visit Provider Internal Medicine
DX: I10 Essential (primary) hypertension (principal); N28.9 Disorder of kidney and ureter, unspecified; I25.10 Atherosclerotic heart disease of native coronary artery without angina pectoris
CPT/HCPCS: 80053; 80061; 85027; 84439; 84443

== ENCOUNTER 2021-02-21 12:22 | Emergency (ER) | payer MEDICARE, SELFPAY ==
[2021-02-21] VITALS (15 sets, daily range): BP systolic 110–150; BP diastolic 62–94; PULSE 55–63; RESP 11–19; TEMP 36.6; O2SAT 81–99
--- NOTE | 2021-02-21 12:30 | DI.CT_ITS ---
Exam(s) CT HEAD CERVICAL SPINE WO EXAM: CT HEAD CERVICAL SPINE WO CLINICAL HISTORY: injury yesterday, SANCHEZ, neck pain. TECHNIQUE: Imaging Protocol: Axial computed tomography images with coronal and sagittal reformatted images were created and reviewed COMPARISON: CT CT HEAD CERVICAL SPINE WO from 08/01/2020 FINDINGS: CT Head: Ventricles and Extra axial spaces: Normal in size and morphology for the patient's age. Hemorrhage: None. Cerebral parenchyma: No acute territorial infarct is present. There are areas of decreased attenuati on in the white matter most consistent with chronic microvascular ischemic change. There is an old r ight basal gangliar lacunar infarct. Midline shift: None. Brainstem/Cerebellum: Normal. Calvarium: Normal. Visualized Paranasal sinuses/Mastoids: Clear. Soft Tissues: Unremarkable. CT Cervical Spine: Bones: There is an acute fracture seen involving the anterior and left cortex of the odontoid at its base. There is also a fracture involving the left transverse process of C1 extending superiorly to i nvolve the superior facet. No other fracture or dislocation is seen. There are degenerative changes seen throughout the spine. Soft Tissues: Unremarkable. Lung Apices: Clear. IMPRESSION: 1. No acute intracranial process. 2. There is an acute nondisplaced fracture involving the anterior left cortex of the odontoid at its base. 3. There is a an acute fracture involving the left transverse process of C1 extending to involve the superior facet. 4. Results of this exam have been verbally communicated with provider on 02/21/2021. RADIATION DOSE DELIVERED: 1,206.9mGy.cm Total DLP DATA REPOSITORY: All CT scans at this facility are submitted to the National Radiology Data Registry (NRDR) Dose Index Registry (DIR) with the [employer] (ACR). RADIATION OPTIMIZATION: All CT scans at this facility use at least one of these dose optimization te chniques: automated exposure control; mA and/or kV adjustment per patient size (includes targeted exa ms where dose is matched to clinical indication); or iterative reconstruction.
--- NOTE | 2021-02-21 13:03 | ED.GENADUL_ITS ---
Discharge Plan Disposition Patient Disposition: HOME Condition: Stable Discharge Details Clinical Impression: Cervical muscle strain, Head injury Primary Care Provider: Ajay Kwan ED Provider: Delroy Treadwell Home Meds and New Rx's Prescriptions: Continued acetaminophen 500 mg capsule 500 mg PO DAILY PRNRF: 0 carbamazepine 200 mg tablet 200 mg PO BID RF: 0 cyclobenzaprine 5 mg tablet 5 mg PO BID RF: 0 carvedilol 12.5 MG tablet 12.5 mg PO BID RF: 0 levothyroxine 100 mcg tablet 125 mcg PO DAILY RF: 0 allopurinol 100 MG tablet 100 mg PO DAILY RF: 0 atorvastatin 20 MG tablet 40 mg PO DAILY RF: 0 aspirin [Aspir-Low] 81 MG tablet,delayed release (DR/EC) 81 mg PO DAILY RF: 0 torsemide 10 mg tablet 10 mg PO DAILY RF: 0 Discharge Instructions Instructions: Cervical Strain (ED), Head Injury (ED) Additional Instructions: CT imaging of your brain and neck do not reveal any obvious emergent process. The CT of your brain does reveal a previous infarct. Wear the soft c-collar as tolerated. [id number] Tylenol as directed for discomfort. Cool and/or warm compresses every 2 hours for 20 minutes. Please watch for new or worsening symptoms and return to the ER for any concerns. Lastly, I would like you to contact your primary care provider tomorrow to discuss your ER visit, ongoing symptoms, and need for outpatient reevaluation. Medical Decision Making 75-year-old male presenting to the ER today after sitting a head injury yesterday complaining of right-sided facial altered sensation, no focal numbness or weakness, and neck pain. Clinically he appears well, nontoxic, alert and oriented x3, neurologically intact. See no evidence of focal neurologic deficit or facial weakness. Plan is to obtain a head and C-spine CT without contrast. Patient was placed into a hard c-collar. There appears to be an old lunar infarct on CT imaging and chronic degenerative changes but nothing acute. C-collar removed. Discussed CT findings with patient and family. Patient and family have no additional questions or concerns and are comfortable discharge. In fact patient is requesting discharge. He was placed into a soft collar for comfort, was able to ambulate steadily without difficulty. Strict discharge and return precautions provided. This documentation was generated using [employer]here[employer] system, please disregard any oddities of phrase or misspellings. Medical Records Medical records reviewed: Yes I reviewed the patient's medical records. Imaging Data Radiologic Study: Attestation: I personally reviewed and interpreted this imaging study as follows: Imaging: CT Scan Radiologist's impression: PROCEDURE INFORMATION: Exam: CT Head Without Contrast Exam date and time: 02/21/2021 12:41 PM Age: 75 years old Clinical indication: Injury or trauma; Fall; Blunt trauma (contusions or hematomas); Injury date: 02/20/21; Patient HX: Right sided neck pain and head TECHNIQUE: Imaging protocol: Computed tomography of the head without contrast. COMPARISON: CT HEAD CERVICAL SPINE WO 01/08/2020 21:02 FINDINGS: Brain: There is a tiny hypodensity in the right caudate head representing an old lacunar infarct. This is unchanged. There is no sign of intra-axial or extra-axial hemorrhage. No area of acute infarction is seen. There is no mass. Cerebral ventricles: Normal. No ventriculomegaly or midline shift. Pituitary gland and sella: Normal. No enlargement. Paranasal sinuses: Visualized sinuses are unremarkable. No fluid levels or mucosal thickening. Mastoid air cells: Visualized mastoid air cells are well aerated. Orbital cavity: Unremarkable. Bones/joints: Unremarkable. No acute fracture. Soft tissues: Unremarkable. 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 No acute intracranial abnormality. No sign of trauma. PROCEDURE INFORMATION: Exam: CT Cervical Spine Without Contrast AAYUSH DAVIS Preliminary Radiology Report TYPING BOOKKEEPER (QA) DISCREPANCY? If there is a discrepancy between the preliminary and final interpretation, please notify [facility] via [email or web address]. If you do not have access to our QA portal, call our QA team at [phone] CONFIDENTIALITY STATEMENT This report is intended only for the use of the referring physician, and only in accordance with law, If you received this in error, call [phone] Page 2 of 2 Exam date and time: 02/21/2021 12:41 PM Age: 75 years old Clinical indication: Injury or trauma; Fall; Blunt trauma (contusions or hematomas); Injury date: 02/20/21; Patient HX: Right sided neck pain and head TECHNIQUE: Imaging protocol: Computed tomography images of the cervical spine without contrast. COMPARISON: CT HEAD CERVICAL SPINE WO 01/08/2020 21:02 FINDINGS: Bones/joints: Vertebral bodies are normal in height and alignment with no fracture. Facet joints show no significant degenerative change. Discs/Spinal canal/Neural foramina: No significant disc protrusion. There is disc space narrowing at C6-C7 as on previous exam. No severe spinal canal stenosis. No significant n eural foraminal narrowing. Lungs: Prior exam noted a nodular density in the posterior left pulmonary apex. This area is not included today. Soft tissues: Unremarkable. No prevertebral soft tissue swelling. IMPRESSION: Moderate degenerative change. No acute abnormality HPI General Mode of arrival: ambulatory . Date/Time Provider Initiated Documentation: 02/21/21 12:40 . Limitations to Documentation: no limitations . Information obtained by: patient and family . HPI Narrative: This is a 75-year-old male, not anticoagulated, past medical history that includes aortic stenosis, atrial flutter, CAD, presenting to the ER for evaluation of a head injury and neck discomfort that occurred yesterday. Patient states that he was in the [employer], walking down a small hill on uneven ground when he tripped falling forward striking the left upper aspect of his scalp upon a tree. He denies any LOC, global headache or visual changes. Patient reports that the right side of his face feels slightly altered but not true numbness or weakness. He reports chronic neck discomfort which is slightly worse than his baseline, both bilateral and posterior. He denies any other injuries. He denies any focal weakness in his arms or legs. Patient has been ambulatory since the [facility]. Patient did take the counter Tylenol once yesterday for his discomfort. He is not anticoagulated. Tetanus status is up-to-date Related Data Home Medications Medication Instructions Recorded Confirmed allopurinol 100 mg PO DAILY 04/07/13 02/21/21 aspirin [Aspir-Low] 81 mg PO DAILY 07/30/14 02/21/21 atorvastatin 40 mg PO DAILY 07/30/14 02/21/21 carvedilol 12.5 mg PO BID tab-cap 08/11/16 02/21/21 acetaminophen 500 mg capsule 500 mg PO DAILY PRN cap 05/06/19 02/21/21 carbamazepine 200 mg tablet 200 mg PO BID 05/06/19 02/21/21 cyclobenzaprine 5 mg tablet 5 mg PO BID tab 05/06/19 02/21/21 levothyroxine 100 mcg tablet 125 mcg PO DAILY tab-cap 05/06/19 02/21/21 torsemide 10 mg PO DAILY 01/05/20 02/21/21 Allergies Allergy/AdvReac Type Severity Reaction Status Date / Time No Known Allergies Allergy Unverified 02/21/21 12:36 General Stated Complaint: HeadInjury KATARINA: 2 Review of Systems Constitutional Constitutional: Denies headache(s) and Denies weakness Eyes Eyes: Denies change in vision ENT Ears, Nose, Mouth, and Throat: Denies headache(s) and Reports neck pain Cardiovascular Cardiovascular: Denies chest pain and Denies dyspnea Respiratory Respiratory: Denies cough and Denies dyspnea Gastrointestinal Gastrointestinal: Denies abdominal pain, Denies nausea and Denies vomiting Musculoskeletal Musculoskeletal: Reports arthralgias, Denies muscle weakness, Reports neck pain, Denies numbness, Reports stiffness and Reports tingling Integumentary/Breasts Skin/Breast: Denies erythema Neurologic Neurologic: Denies headache(s), Denies numbness, Reports tingling and Denies weakness Hematologic/Lymphatic Hematologic/Lymphatic: Denies easy bleeding and Denies easy bruising PFSH Medical History Anemia Aortic stenosis Atrial flutter CAD (coronary artery disease) Degeneration of cervical intervertebral disc Dyspnea on exertion Gout History of nephrectomy Hx of atrial flutter Hx of gastric ulcer Hx of non-ST elevation myocardial infarction (NSTEMI) Hypothyroidism IBS (irritable bowel syndrome) Intermittent claudication Internal hemorrhoids Lumbar back pain Myalgia Paresthesia Primary osteoarthritis, left shoulder Renal insufficiency Right flank pain Surgical History Fracture, Open Treatment left femor ORIf Nephrectomy left Replacement of aortic valve Social History Smoking/Tobacco Use Status: Former Tobacco Use Smoking risk assessment performed?: Yes Alcohol Intake: current Alcohol Intake frequency: 0-2 drinks per day Alcohol type: hard liquor Drug use: Never Substance use type: does not use Do you feel safe at home: Yes Do you feel safe in your relationship?: Yes Exam Const General: cooperative, healthy appearing, comfortable and no acute distress Orientation: alert, awake and oriented x3 [facility] Head: normocephalic Head images: 1. Abrasion, contusion, mild discomfort. No crepitus. No signs of secondary infection Ears: external ears normal, TM's normal bilaterally and EAC's normal General nose exam: external nose normal Mouth: moist mucous membranes Throat: posterior oropharynx normal Eyes General: appearance normal, both eyes and all related structures Alignment and Position: alignment normal Periorbital: periorbital findings normal Eyelids: eyelids normal Conjunctivae: conjunctivae normal Sclera: sclerae normal Cornea: corneas normal Pupils: PERRL EOM: EOM intact bilaterally Direct ophthalmoscopy: normal light reflex Neck Neck: normal visual inspection, trachea midline, supple and tender (Bilateral and diffuse posterior) Other: In a hard c-collar Chest Chest: normal inspection of the chest and normal palpation of entire chest wall Resp Effort & Inspection: normal respiratory effort and able to speak in complete sentences Auscultation: clear to auscultation bilaterally Cardio Rate: regular rate Rhythm: regular rhythm GI Palpation: soft and nontender Back/Spine/Pelvis Back: No back tenderness Skin General skin exam: no rashes or lesions noted Neuro General: patient alert, patient awake, patient oriented x3, moves all extremities and no focal motor deficits Cranial Nerves: CN's II-XI intact bilaterally Cognition: normal cognition Speech: speech normal Gait: normal gait Motor: muscle tone normal throughout, strength 5/5 throughout and no movement abnormalities noted Sensory Exam: no sensory deficits noted Coordination: Does not sway with eyes open Extrem General: normal to inspection, full ROM and capillary refill normal Psych Appearance: grossly normal Mental Status: mental status grossly normal Course Vital Signs Vital signs: Vital Signs Temperature 36.6 C 02/21/21 12:28 Pulse 60 02/21/21 12:28 Respiratory Rate 14 02/21/21 12:28 Blood Pressure 150/62 H 02/21/21 12:28 Pulse Oximetry 99 02/21/21 12:28 Temperature 36.6 C 02/21/21 12:28 Temperature Source Skin 02/21/21 12:28 Pulse 60 02/21/21 12:28 Respiratory Rate 14 02/21/21 12:28 Respiratory Effort 02/21/21 12:39 Respiratory Depth Normal 02/21/21 12:39 Respiratory Pattern Normal 02/21/21 12:39 Blood Pressure 150/62 H 02/21/21 12:28 Pulse Oximetry 99 02/21/21 12:28 Oxygen Delivery Method Room Air 02/21/21 12:28 Oxygen Flow Rate 0 02/21/21 12:28 Pain Level 3 02/21/21 12:28 Comment 02/21/21 12:28 PAWSS Have you Been Recently Intoxicated or Drunk Within the Last 30 days?: No Have you Ever Experienced Previous Episodes of Alcohol Withdrawal?: No Have you ever Experienced Withdrawal Seizures?: No Have you ever Experienced Delirium Tremens(DT)s?: No Have you ever undergone Alcohol Rehabilitation Treatment (i.e, inpt ot outpatient treatment programs)?: No Have you ever Experienced Blackouts?: No Have you ever Combined Alcohol with other Downers within the last 90 days?: No Have you ever Combined Alcohol with any other Substance of Abuse during the last 90 days?: No Positive Blood Alcohol level on Presentation? [PCS.BAL]: No Evidence of Increased Autonomic Activity (i.e. HR>120, tremor, sweating, agitation, nausea)?: No Result: 0
--- NOTE | 2021-02-21 13:34 | DI.VRAD_ITS ---
Addendum created by Stan Truong MD on 02/21/2021 6:36:52 PM EST: THIS REPORT CONTAINS FINDINGS THAT MAY BE CRITICAL TO PATIENT CARE. The findings were verbally communicated by me to Dr. James via telephone conference at 6:36 PM EST on 02/21/2021. The findings were acknowledged and understood. Addendum created by Stan Truong MD on 02/21/2021 6:30:59 PM EST: Addendum: Review of this case demonstrates a subtle fracture through the body of C2 not clearly visible on axial images but seen on sagittal and coronal reconstructions. There also is a subtle fracture through the lateral mass on the right again better visualized on reconstructed images than on original axial scan. The fractures are nondisplaced. Initial report created on 02/21/2021 1:33:38 PM EST: PROCEDURE INFORMATION: Exam: CT Head Without Contrast Exam date and time: 02/21/2021 12:41 PM Age: 75 years old Clinical indication: Injury or trauma; Fall; Blunt trauma (contusions or hematomas); Injury date: 02/20/21; Patient HX: Right sided neck pain and head TECHNIQUE: Imaging protocol: Computed tomography of the head without contrast. COMPARISON: CT HEAD CERVICAL SPINE WO 01/08/2020 21:02 FINDINGS: Brain: There is a tiny hypodensity in the right caudate head representing an old lacunar infarct. This is unchanged. There is no sign of intra-axial or extra-axial hemorrhage. No area of acute infarction is seen. There is no mass. Cerebral ventricles: Normal. No ventriculomegaly or midline shift. Pituitary gland and sella: Normal. No enlargement. Paranasal sinuses: Visualized sinuses are unremarkable. No fluid levels or mucosal thickening. Mastoid air cells: Visualized mastoid air cells are well aerated. Orbital cavity: Unremarkable. Bones/joints: Unremarkable. No acute fracture. Soft tissues: Unremarkable. 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 No acute intracranial abnormality. No sign of trauma. PROCEDURE INFORMATION: Exam: CT Cervical Spine Without Contrast Exam date and time: 02/21/2021 12:41 PM Age: 75 years old Clinical indication: Injury or trauma; Fall; Blunt trauma (contusions or hematomas); Injury date: 02/20/21; Patient HX: Right sided neck pain and head TECHNIQUE: Imaging protocol: Computed tomography images of the cervical spine without contrast. COMPARISON: CT HEAD CERVICAL SPINE WO 01/08/2020 21:02 FINDINGS: Bones/joints: Vertebral bodies are normal in height and alignment with no fracture. Facet joints show no significant degenerative change. Discs/Spinal canal/Neural foramina: No significant disc protrusion. There is disc space narrowing at C6-C7 as on previous exam. No severe spinal canal stenosis. No significant neural foraminal narrowing. Lungs: Prior exam noted a nodular density in the posterior left pulmonary apex. This area is not included today. Soft tissues: Unremarkable. No prevertebral soft tissue swelling. IMPRESSION: Moderate degenerative change. No acute abnormality. Dictated and Authenticated by: Stan Truong MD. Ordering:LORA Potts MD
== END 2021-02-21 14:13 | disposition home or self-care (01) ==
PROVIDERS: Emergency Provider Physician Assistant; PCP Internal Medicine
DX: S12.091A Other nondisplaced fracture of first cervical vertebra, initial encounter for closed fracture (principal); S12.121A Other nondisplaced dens fracture, initial encounter for closed fracture; S00.01XA Abrasion of scalp, initial encounter; R20.8 Other disturbances of skin sensation; W01.198A Fall on same level from slipping, tripping and stumbling with subsequent striking against other object, initial encounter; W22.09XA Striking against other stationary object, initial encounter
CPT/HCPCS: 99284; 70450; 72125

== ENCOUNTER 2021-02-21 15:56 | Emergency (ER) | payer MEDICARE, OTHER, SELFPAY ==
[2021-02-21 15:59] VITALS: BP 167/72; PULSE 66; TEMP 36.5
--- NOTE | 2021-02-21 16:00 | DI.CT_ITS ---
Exam(s) CT BRAIN NECK CTA EXAM: CT BRAIN NECK CTA CLINICAL HISTORY: cervical fracture. TECHNIQUE: Imaging Protocol: Axial CT angiography was performed with multi-slice acquisition and mu lti-planar and/or 3D reconstructions. CONTRAST MATERIAL: Intravenous: Omnipaque 350 Contrast volume:structured data in ml COMPARISON: CT ABD PELVIS WO CONTRAST from 03/10/2017 FINDINGS: CTA Neck W: Aortic arch anatomy: There is sternotomy wires noted. Aortic arch anatomy is conventional. There is no tight stenosis of origins of the great vessels off the aortic arch. Both common carotid arteries ascend with luminal diameters within normal limits. However, the amount of motion artifact here pre vents accurate assessment of carotid bulbs and proximal internal carotid arteries on both sides. The re does appear to be significant disease at these levels. The internal carotid arteries are patent i n the mid-upper neck. Vertebral arteries originate off the subclavian arteries some calcified plaque at their origins. Bot h vertebral arteries are patent within foramen transversarium without evidence of intraluminal thromb us nor dissection. Both vertebral arteries contribute to the formation of the basilar artery at the skull base. CTA Brain W: Anterior circulation: Both internal carotid arteries are patent in the skull base-carotid canals as well as within the cave rnous sinuses where there are peripherally calcified but not truly stenotic. The supraclinoid aspect s of both internal carotid arteries are patent. A1 segments are thin but patent. Anterior cerebral arteries are patent. No evidence of aneurysm at the level of the anterior communicating artery. Middle cerebral arteries appear to be patent bilaterally. No intraluminal thrombus and no aneurysms in these vessels demonstrated. Posterior circulation: Basilar artery is formed by both vertebral arteries and arises in the midline. Distally gives off mccann perior cerebellar arteries and above this level terminates as posterior cerebral arteries which are p atent. CT BRAIN: There is no evidence of intracranial hemorrhage, mass effect, or shift of midline structures. There are no extra-axial fluid collections. Ventricles are not enlarged or shifted. There are no ring enh ancing lesions in the brain and no abnormal meningeal enhancement. IMPRESSION: 1. Suboptimal study due to motion. There is significant calcified plaque at both carotid bifurcation s-carotid bulbs producing significant narrowing but the degree of stenosis is difficult to assess bec ause the amount of motion artifact here. Recommend Doppler ultrasound study for quantification. 2. Vertebral arteries are patent in the neck. 3. Intracranial arteries are patent with no large vessel stenosis or occlusion and no obvious aneur ysms. No significant focal findings in the brain. No ring enhancing lesions in the brain nor abnormal meni ngeal enhancement. RADIATION DOSE DELIVERED: 1,210.98mGy.cm Total DLP DATA REPOSITORY: All CT scans at this facility are submitted to the National Radiology Data Registry (NRDR) Dose Index Registry (DIR) with the [employer] (A[employer]). RADIATION OPTIMIZATION: All CT scans at this facility use at least one of these dose optimization te chniques: automated exposure control; mA and/or kV adjustment per patient size (includes targeted exa ms where dose is matched to clinical indication); or iterative reconstruction.
--- NOTE | 2021-02-21 16:20 | W.ED.GENAD ---
Discharge Plan Disposition Patient Disposition: HOME Condition: Improving Discharge Details Clinical Impression: Closed cervical spine fracture Primary Care Provider: Ajay Kwan ED Provider: Stan James Home Meds and New Rx's Prescriptions: Continued acetaminophen 500 mg capsule 500 mg PO DAILY PRNRF: 0 carbamazepine 200 mg tablet 200 mg PO BID RF: 0 cyclobenzaprine 5 mg tablet 5 mg PO BID RF: 0 carvedilol 12.5 MG tablet 12.5 mg PO BID RF: 0 levothyroxine 100 mcg tablet 125 mcg PO DAILY RF: 0 allopurinol 100 MG tablet 100 mg PO DAILY RF: 0 atorvastatin 20 MG tablet 40 mg PO DAILY RF: 0 aspirin [Aspir-Low] 81 MG tablet,delayed release (DR/EC) 81 mg PO DAILY RF: 0 torsemide 10 mg tablet 10 mg PO DAILY RF: 0 Discharge Instructions Additional Instructions: The case was discussed with neurosurgery at [facility] today, Dr. Garcia. They stated that clinic will call you with a time to be seen in follow-up. Your cervical collar needs to stay on until seen in clinic for recheck. May use Tylenol as needed for pain. Continue your routine medications. Return to the ER for any acute concerns. Medical Decision Making This is a 75-year-old male who was seen earlier today by Mr. Treadwell. He was called back after in-house radiology over read noted nondisplaced C2 fracture 3 right transverse process and facet. Left-sided odontoid fracture that is nondisplaced. The case was discussed with neurosurgery/spine surgery at [facility]. They recommended the patient be placed in a hard collar, return for CTA as well as plain film imaging. The patient does not have motor weakness or sensory deficits, although subjectively complains of decreased sensation on the right side of his neck. IV was established, screening labs obtained patient referred for imaging. CT angiogram showed no evidence of large vessel occlusion, stenosis, or dissection. As per plan established with neurosurgery, patient went for baseline plain radiographs of the cervical spine. He will be kept in a hard collar until seen in follow-up in clinic at [facility]. Patient understands homecare as well as indications to seek return repeat evaluation. HPI General Mode of arrival: ambulatory. Date/Time Provider Initiated Documentation: 02/21/21 16:08. Limitations to Documentation: no limitations. Information obtained by: patient. History of Present Illness 75 year old M presents to the emergency department with the chief complaint of Called back for repeat imaging, neck pain after fall, described as moderate, Quality is described as dull, and is localized to the neck and right. Patient reports no radiation. Patient started experiencing this hour(s) and it has been constant. No relieving factors improve symptom(s), No exacerbating factors reported . Patient notes denies weakness. Patient did receive the following treatments prior to arrival, none Related Data Home Medications Medication Instructions Recorded Confirmed allopurinol 100 mg PO DAILY 04/07/13 02/21/21 aspirin [Aspir-Low] 81 mg PO DAILY 07/30/14 02/21/21 atorvastatin 40 mg PO DAILY 07/30/14 02/21/21 carvedilol 12.5 mg PO BID tab-cap 08/11/16 02/21/21 acetaminophen 500 mg capsule 500 mg PO DAILY PRN cap 05/06/19 02/21/21 carbamazepine 200 mg tablet 200 mg PO BID 05/06/19 02/21/21 cyclobenzaprine 5 mg tablet 5 mg PO BID tab 05/06/19 02/21/21 levothyroxine 100 mcg tablet 125 mcg PO DAILY tab-cap 05/06/19 02/21/21 torsemide 10 mg PO DAILY 01/05/20 02/21/21 Allergies Allergy/AdvReac Type Severity Reaction Status Date / Time No Known Allergies Allergy Unverified 02/21/21 12:36 General Stated Complaint: Recheck KATARINA: 2 Review of Systems Narrative: Patient reports diminished sensation right side of the neck sensation present. No motor weakness. [facility] Medical History Anemia Aortic stenosis Atrial flutter CAD (coronary artery disease) Degeneration of cervical intervertebral disc Dyspnea on exertion Gout History of nephrectomy Hx of atrial flutter Hx of gastric ulcer Hx of non-ST elevation myocardial infarction (NSTEMI) Hypothyroidism IBS (irritable bowel syndrome) Intermittent claudication Internal hemorrhoids Lumbar back pain Myalgia Paresthesia Primary osteoarthritis, left shoulder Renal insufficiency Right flank pain Surgical History Fracture, Open Treatment left femor ORIf Nephrectomy left Replacement of aortic valve Social History Smoking/Tobacco Use Status: Former Tobacco Use Smoking risk assessment performed?: Yes Alcohol Intake: current Alcohol Intake frequency: 0-2 drinks per day Alcohol type: hard liquor Drug use: Never Substance use type: does not use Do you feel safe at home: Yes Do you feel safe in your relationship?: Yes Exam Narrative Exam Narrative: GEN: awake, alert, oriented 3. Pleasant, well groomed, interactive. HEAD: Normocephalic, atraumatic ENT: Mucous membranes moist, oropharynx unremarkable, External ear exam unremarkable EYES: PERRL, EOMI NECK: In cervical collar CHEST/RESP: Nontender, clear to auscultation bilateral, no wheeze/rhonchi/rales CARDIOVASCULAR: RRR, no murmur, rub fallon. 2+ Rad pulse bilateral ABDOMEN: Soft, nontender, no mass. +Bowel sounds EXT: Full ROM, no edema, no rash Neuro: Grossly normal neurologic exam, conversant, interactive. Sensation intact throughout. Patient demonstrates normal motor function of the upper extremities including testing of radial, median, ulnar nerve motor function. Psych: Speech fluent, thoughts congruent, affect normal Course Vital Signs Vital signs: Vital Signs Temperature 36.5 C 02/21/21 15:59 Pulse 66 02/21/21 15:59 Blood Pressure 167/72 H 02/21/21 15:59 Temperature 36.5 C 02/21/21 15:59 Temperature Source Skin 02/21/21 15:59 Pulse 66 02/21/21 15:59 Blood Pressure 167/72 H 02/21/21 15:59 Pain Level 3 02/21/21 15:59
[2021-02-21 16:37] LABS: HGB 11.2 g/dL (13.5-17.5); MCH 33.2 pg (27.0-33.0); MCHC 32.9 % (32.0-36.0); MCV 100.9 fL (80-95); MPV 9.2 fL (8.0-11.0); Platelet Count 159 10^3/uL (130-400); RBC 3.37 10^6/uL (4.36-5.78); RDW 13.9 % (11.8-14.1); RDW-SD 51.1 fL; WBC 5.18 10^3/uL (4.4-10.8)
[2021-02-21 16:47] LABS: BUN 35 mg/dL (7-18); CREATININE 1.8 mg/dL (0.70-1.30); Chloride 105 mmol/L (98-107); Estimated GFR 36.77 (mL/min/1.73m2); Glucose 102 mg/dL (74-106); Potassium 4.3 mmol/L (3.5-5.1); Sodium 142 mmol/L (136-145)
[2021-02-21] MEDS: Omnipaque 350 MG/ML 100 ML BTL IJ (17:12)
[2021-02-21] MEDS: Normal Saline - Diluent 50 ML VIAL IV (17:12)
[2021-02-21] MEDS: Normal Saline 500 ML IV (17:29)
--- NOTE | 2021-02-21 17:43 | DI.VRAD_ITS ---
PROCEDURE INFORMATION: Exam: CT Angiography Head With Contrast, Arteriography Exam date and time: 02/21/2021 4:10 PM Age: 75 years old Clinical indication: Injury or trauma; Fall; Fracture, traumatic; Closed fracture; Neck or cervical vertebra; First and second TECHNIQUE: Imaging protocol: Computed tomography angiography of the head with contrast. Exam focused on the arteries. 3D rendering (Not supervised by radiologist): MIP and/or 3D reconstructed images were created by the technologist. Contrast material: OMNIPAQUE 350; Contrast volume: 100 ml; Contrast route: INTRAVENOUS (IV); COMPARISON: CT HEAD CERVICAL SPINE WO 21/02/2021 13:07 FINDINGS: ANTERIOR CIRCULATION: Right internal carotid artery: There is mild calcification of the cavernous carotid arteries but there does not appear to be significant stenosis. Right middle cerebral artery: Unremarkable. No occlusion or significant stenosis. No aneurysm. Right anterior cerebral artery: Unremarkable. No occlusion or significant stenosis. No aneurysm. Left internal carotid artery: Mild calcification of the cavernous carotid but without significant stenosis. Intracranial segment is patent with no significant stenosis. No aneurysm. Left middle cerebral artery: Unremarkable. No occlusion or significant stenosis. No aneurysm. Left anterior cerebral artery: Unremarkable. No occlusion or significant stenosis. No aneurysm. POSTERIOR CIRCULATION: Right vertebral artery: Unremarkable. No occlusion or significant stenosis. No aneurysm. Left vertebral artery: Unremarkable. No occlusion or significant stenosis. No aneurysm. Basilar artery: Unremarkable. No occlusion or significant stenosis. No aneurysm. Right posterior cerebral artery: Unremarkable. No occlusion or significant stenosis. No aneurysm. Left posterior cerebral artery: Unremarkable. No occlusion or significant stenosis. No aneurysm. Brain: No definite mass, mass effect, or midline shift. Delayed post-contrast imaging of the brain shows no abnormal enhancement. Cerebral ventricles: No ventriculomegaly. Bones/joints: Unremarkable. No acute fracture. Soft tissues: Unremarkable. IMPRESSION: No large vessel stenosis or occlusion. PROCEDURE INFORMATION: Exam: CT Angiography Neck With Contrast Exam date and time: 02/21/2021 4:10 PM Age: 75 years old Clinical indication: Injury or trauma; Fall; Fracture, traumatic; Closed fracture; Neck or cervical vertebra; First and second TECHNIQUE: Imaging protocol: Computed tomography angiography of the neck with contrast. 3D rendering (Not supervised by radiologist): MIP and/or 3D reconstructed images were created by the technologist. Contrast material: OMNIPAQUE 350; Contrast volume: 100 ml; Contrast route: INTRAVENOUS (IV); COMPARISON: CT HEAD CERVICAL SPINE WO 21/02/2021 13:07 FINDINGS: Right common carotid artery: Arises normally from the brachiocephalic artery. There is a large calcified plaque at the carotid bulb. This produces some narrowing but the degree of stenosis cannot be accurately quantified from this study. Right internal carotid artery: No stenosis of the extracranial segment. No dissection or occlusion. Right external carotid artery: No occlusion or stenosis of the origin. Left common carotid artery: Arises normally from the aortic arch. There is a large calcified plaque at the bulb producing some narrowing but the degree of stenosis cannot be accurately quantified from the study. Left internal carotid artery: No stenosis of the extracranial segment. No dissection or occlusion. Left external carotid artery: No occlusion or stenosis of the origin. Right vertebral artery: No stenosis. No dissection or occlusion. Left vertebral artery: No stenosis. No dissection or occlusion. Soft tissues: Normal. No significant soft tissue swelling. Bones/joints: No acute fracture. IMPRESSION: Prominent calcified plaque at the carotid bulb bilaterally producing some narrowing. The degree of stenosis may be better quantified by MRA or vascular ultrasound. REFERENCES: NASCET CRITERIA. The degree of internal carotid artery stenosis is based on NASCET criteria. Normal is no stenosis. Mild is less than 50% stenosis. Moderate is 50-69% stenosis. Severe is 70% to 99% stenosis. Total occlusion is no detectable patent lumen. Dictated and Authenticated by: Stan Truong MD. Ordering:ESTHER Pierce MD
--- NOTE | 2021-02-21 17:48 | DI.RAD_ITS ---
Exam(s) XR CERVICAL SP AVILA TRAUMA 2-3V EXAM: XR CERVICAL SP AVILA TRAUMA 2-3V CLINICAL HISTORY: Neck fracture. TECHNIQUE: 2D digital imaging was performed. COMPARISON: No exams were available for comparison FINDINGS: Possible subtle fracture through the lateral mass of C2 on the right side. Not seen on the lateral v iew. No listhesis. No prominent disc space narrowing. Mild disc space narrow at C6-7 level. No of fset of the spinal laminar line. No prevertebral soft tissue swelling. Sternotomy wires noted. IMPRESSION: Possible C2 fracture right side. Recommend thin slice CT scan using trauma protocol DATA REPOSITORY: RADIATION DOSE DELIVERED:
--- NOTE | 2021-02-21 18:32 | DI.VRAD_ITS ---
PROCEDURE INFORMATION: Exam: XR Cervical Spine Exam date and time: 02/21/2021 5:49 PM Age: 75 years old Clinical indication: Other: Neck fracture TECHNIQUE: Imaging protocol: XR of the cervical spine. Views: 2 or 3 views. COMPARISON: CT HEAD CERVICAL SPINE WO 21/02/2021 13:07 FINDINGS: Bones/joints: CT scan shows a subtle fracture through the lateral mass of C2 on the right. This is not visible on the lateral radiograph but on the frontal open mouth view a vertical lucency is visible through the lateral body of C2. Soft tissues: No prevertebral soft tissue swelling. IMPRESSION: C2 fracture as above. Dictated and Authenticated by: Stan Truong MD. Ordering:ESTHER Pierce MD
== END 2021-02-21 18:40 | disposition home or self-care (01) ==
PROVIDERS: Emergency Provider Emergency Medicine; PCP Internal Medicine
DX: S12.191A Other nondisplaced fracture of second cervical vertebra, initial encounter for closed fracture (principal); W18.39XA Other fall on same level, initial encounter
CPT/HCPCS: 36415; 70496; 70498; 80048; 85027; 96360; 99284; 99285; 70450; 72040; 72125; 99283; J3490

== ENCOUNTER 2021-08-10 17:41 | Outpatient (REF) | payer MEDICARE, OTHER, SELFPAY ==
[2021-08-10 14:21] LABS: Anion Gap 5.7 mmol/L (3-11); BUN 31 mg/dL (7-18); CO2 30.3 mmol/L (21.0-32.0); CREATININE 1.6 mg/dL (0.70-1.30); Calcium 8.7 mg/dL (8.5-10.1); Chloride 106 mmol/L (98-107); Estimated GFR 42.01 (mL/min/1.73m2); Glucose 102 mg/dL (74-106); Potassium 5.3 mmol/L (3.5-5.1); Sodium 142 mmol/L (136-145); TSH 1.58 uIU/mL (0.36-3.74)
== END 2021-08-10 17:42 | disposition home or self-care (01) ==
LOC: NCHCN 17:41
PROVIDERS: PCP Internal Medicine; Visit Provider Internal Medicine
DX: E03.9 Hypothyroidism, unspecified (principal); I10 Essential (primary) hypertension; Z95.2 Presence of prosthetic heart valve; I25.10 Atherosclerotic heart disease of native coronary artery without angina pectoris
CPT/HCPCS: 80048; 84439; 84443

== ENCOUNTER 2021-08-11 07:50 | Outpatient (REF) | payer MEDICARE, SELFPAY | END 2021-08-11 07:51 | disposition home or self-care (01) | LOC: NCHCN 07:50 | PROVIDERS: PCP Internal Medicine; Visit Provider Internal Medicine ==

== ENCOUNTER 2021-08-24 15:00 | Outpatient (REF) | payer MEDICARE, OTHER, SELFPAY ==
[2021-08-24 15:43] LABS: Calculated LDL 76 mg/dL (<100); Cholesterol 134 mg/dL (<200); HDL Cholesterol 42 mg/dL (40-60); Triglyceride 81 mg/dL (<150)
== END 2021-08-24 15:01 | disposition home or self-care (01) ==
LOC: NCHCN 15:00
PROVIDERS: PCP Internal Medicine; Visit Provider Internal Medicine
DX: I10 Essential (primary) hypertension (principal); I25.10 Atherosclerotic heart disease of native coronary artery without angina pectoris
CPT/HCPCS: 80061

== ENCOUNTER 2022-06-28 18:49 | Outpatient (REF) | payer MEDICARE, SELFPAY ==
[2022-06-28 16:07] LABS: TROPONIN-I 7.1 ug/mL (4.0-12.0)
== END 2022-06-28 18:50 | disposition home or self-care (01) ==
LOC: NCHCN 18:49
PROVIDERS: PCP Internal Medicine; Visit Provider Internal Medicine
DX: R20.2 Paresthesia of skin (principal); M79.18 Myalgia, other site; M50.30 Other cervical disc degeneration, unspecified cervical region; Z51.81 Encounter for therapeutic drug level monitoring; Z79.899 Other long term (current) drug therapy
CPT/HCPCS: 80156

== ENCOUNTER 2022-08-08 15:14 | Outpatient (REF) | payer MEDICARE, SELFPAY ==
[2022-08-08 15:55] LABS: ALT 19 U/L (16-63); AST 15 U/L (15-37); Alkaline Phosphatase 132 U/L (46-116); Anion Gap 5.7 mmol/L (3-11); BUN 27 mg/dL (7-18); Bilirubin, Total 0.4 mg/dL (0.2-1.0); CO2 31.3 mmol/L (21.0-32.0); CREATININE 1.7 mg/dL (0.70-1.30); Calcium 8.9 mg/dL (8.5-10.1); Chloride 107 mmol/L (98-107); Glucose 105 mg/dL (74-106); Potassium 4.4 mmol/L (3.5-5.1); Sodium 144 mmol/L (136-145); TSH 2.73 uIU/mL (0.36-3.74); Total Protein 7.2 g/dL (6.4-8.2)
== END 2022-08-08 15:15 | disposition home or self-care (01) ==
LOC: NCHCN 15:14
PROVIDERS: PCP Internal Medicine; Visit Provider Internal Medicine
DX: E03.9 Hypothyroidism, unspecified (principal); I10 Essential (primary) hypertension; I25.10 Atherosclerotic heart disease of native coronary artery without angina pectoris; N18.30 Chronic kidney disease, stage 3 unspecified; M10.9 Gout, unspecified
CPT/HCPCS: 80053; 84443

== ENCOUNTER 2022-08-09 04:18 | Outpatient (CLI) | payer MEDICARE, OTHER, SELFPAY ==
--- NOTE | 2022-08-09 | DI.RAD_ITS ---
Exam(s) XR CHEST 2V PA LATERAL EXAM: XR CHEST 2V PA LATERAL CLINICAL HISTORY: CAD,I25.10,H/O AORTIC VALVE REPLACEMENT,Z95.2. TECHNIQUE: 2D digital imaging was performed. COMPARISON: CR XR RIBS BI INCLUDE CHEST from 03/19/2019 CR XR CHEST 2V PA LATERAL from 01/09/2020 FINDINGS: 2 views: Sternotomy wires and prosthetic aortic valve are again noted. Heart size remains normal in the mediastinum is unchanged. Multiple healed and partially healed left-sided rib fractures are now evident, not previously present . No pneumothorax. There are no compression fractures. Small nodular density in the right lung base is unchanged from prior chest x-rays and probably repres ent breast nipple. No new ominous pulmonary nodules nor pleural effusions. IMPRESSION: No acute pulmonary findings. Multiple healing and healed left-sided rib fractures are now evident. There is no pneumothorax. No pleural effusion DATA REPOSITORY: RADIATION DOSE DELIVERED:
== END 2022-08-09 04:38 ==
PROVIDERS: PCP Internal Medicine; Visit Provider Internal Medicine
DX: Z95.2 Presence of prosthetic heart valve (principal); I25.10 Atherosclerotic heart disease of native coronary artery without angina pectoris
CPT/HCPCS: 71046

== ENCOUNTER 2022-09-02 18:00 | Emergency (ER) | payer MEDICARE, OTHER, SELFPAY ==
[2022-09-02 18:26] VITALS: BP 166/74; PULSE 57; RESP 15; TEMP 36.9; O2SAT 99
--- NOTE | 2022-09-02 20:30 | DI.RAD_ITS ---
Exam(s) XR TOE LT GREAT EXAM: XR TOE LT GREAT CLINICAL HISTORY: Left great toe swelling. TECHNIQUE: 2D digital imaging was performed. COMPARISON: No exams were available for comparison FINDINGS: 3 views No evidence of acute fracture nor dislocation nor radiopaque foreign body. No osseous lesions nor er osions. No obvious degenerative changes at the great toe metatarsophalangeal joint. A medial bony e xcrescence in the distal phalanx is typical at this location. IMPRESSION: No acute osseous findings. No radiopaque foreign body. No osseous lesions nor erosions and no evide nce of osteomyelitis. DATA REPOSITORY: RADIATION DOSE DELIVERED:
--- NOTE | 2022-09-02 20:30 | W.ED.GENAD ---
Discharge Plan Disposition Patient Disposition: Home Discharge Details Clinical Impression: Gouty arthritis of left great toe, Acute pharyngitis Primary Care Provider: Ajay Kwan ED Provider: Shoaib Humphreys Home Meds and New Rx's Prescriptions: Continued acetaminophen 500 mg capsule 500 mg PO DAILY PRN carbamazepine 200 mg tablet 200 mg PO BID cyclobenzaprine 5 mg tablet 5 mg PO BID Rx Instructions: 1 Tab in the AM 2 Tabs in PM carvedilol 12.5 MG tablet 12.5 mg PO BID levothyroxine 100 mcg tablet 125 mcg PO DAILY allopurinol 100 MG tablet 100 mg PO DAILY atorvastatin 20 MG tablet 40 mg PO DAILY aspirin [Aspir-Low] 81 MG tablet,delayed release (DR/EC) 81 mg PO DAILY torsemide 10 mg tablet 10 mg PO DAILY Discharge Instructions Instructions: Pharyngitis (ED), Gout (ED) Additional Instructions: Please read all of the information that accompanies these instructions. You were seen in the emergency department for your toe pain. You received a dose of colchicine in the emergency department and are receiving another dose that you should take at home at 10 PM. Please schedule an appointment with your primary care provider next week as needed. Please return to the emergency department if develop any worsening pain in your toe difficulty breathing or difficulty handling her secretions. Your x-ray showed no sign of any obvious fractures. If the radiologist sees any fractures you will receive a call for the emergency department. Discharge Data Discharge Date/Time-TO BE ENTERED AT DEPARTURE: 09/02/22 21:13 Medical Decision Making This is an overall well-appearing normothermic and not tachycardic 77-year-old male with history of gout now with left great toe monoarticular arthalgia concerning for acute inflammatory arthralgia secondary to a likely crystalline source given prior history of gout and acute pharyngitis. Concerning his gouty arthritis he has had no fevers nor any limitations in his range of motion to suggest septic joint. Given his recent dietary indiscretion with daily whiskey and increased red meat I certainly think that this could be the cause of his gouty arthritis. Given that he has had this diagnosis before will defer arthrocentesis at this point in time. No history of IV drug use making septic joint less likely. No history of trauma however patient has not had imaging of his left great toe in the past so we will obtain plain films to assess for any obvious tophi or joint invasion. 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 Will initiate treatment with 1.2 mg of colchicine with 0.6 mg to go home with. I advised outpatient follow-up. We discussed avoidance of exceedingly proteinaceous meals and limitations of alcohol. I have encouraged him to be adherent with his home allopurinol. Concerning his pharyngitis he has no signs of a peritonsillar abscess based on his midline uvula. He has good range of motion in his neck so I am not concerned for retropharyngeal abscess. He has a low Centor score and as result I felt that the probability of strep pharyngitis is exceedingly low so I did not complete a strep swab. He had a Centor score of 0 secondary to lack of cough and age greater than 44. I offered patient a COVID swab which he declined. I advised patient to return if he cannot handle his secretions if he developed a cough or shortness of breath which could suggest pneumonia or if he had any other concerns. I also advised ED return if his left toe became more swollen. 09/04 I called the patient at home to inquire as to how he was feeling. He reported that his left great toe perhaps felt better yesterday but was slightly worse today. Given persistent pain will treat with additional dose of colchicine. I called Dany garcia in [facility] and prescribed 1.25 mg of colchicine followed by 0.6 mg an hour later. I also advised that the patient hold his torsemide for the next 2 days. Concerning his sore throat he reported that this was perhaps slightly improved but that he had developed a cough. He has not had any fevers nor shortness of breath. I advised that if his cough worsens or if he did develop any fevers or shortness of breath that he should return to the emergency department. Similarly advised that he return if his left great toe monoarthropathy worsened. Otherwise advised PMD follow-up on Monday. HPI General Date/Time Provider Initiated Documentation: 09/02/22 20:30. HPI Narrative: This is a 77-year-old male with a history of gout presenting with left great toe swelling and sore throat. He says that his left great toe has been swollen for several days. He attempted to pickle cutter medications from his primary care but these were the wrong ones reportedly. Reportedly a prescription was sent in for allopurinol. Patient reports that he has 1 kidney and cannot take NSAIDs. He reports that he has received colchicine in the past and this has helped prior flares of gout. He reports being adherent with his daily allopurinol. He says that he has also had 1 whiskey a day for the past several days and slightly more red meat than usual and he suspects that this is the cause of his gouty arthritis. He also has concerns for sore throat and says that he has had 2 days of a sore throat. He denies any sick contacts. He has had no fevers nor cough. He has been breathing normally. He does not feel short of breath. Related Data Home Medications Medication Instructions Recorded Confirmed allopurinol 100 mg tablet 100 mg PO DAILY 04/07/13 09/02/22 aspirin 81 mg tablet,delayed 81 mg PO DAILY 07/30/14 09/02/22 release (Aspir-Low) atorvastatin 20 mg tablet 40 mg PO DAILY 07/30/14 09/02/22 carvedilol 12.5 mg tablet 12.5 mg PO BID 08/11/16 09/02/22 acetaminophen 500 mg capsule 500 mg PO DAILY PRN 05/06/19 09/02/22 carbamazepine 200 mg tablet 200 mg PO BID 05/06/19 09/02/22 cyclobenzaprine 5 mg tablet 5 mg PO BID 05/06/19 09/02/22 levothyroxine 100 mcg tablet 125 mcg PO DAILY 05/06/19 09/02/22 torsemide 10 mg tablet 10 mg PO DAILY 01/05/20 09/02/22 Allergies Allergy/AdvReac Type Severity Reaction Status Date / Time No Known Allergies Allergy Unverified 09/02/22 18:28 General Stated Complaint: RashLesion KATARINA: 4 [facility] All Active Problems (Updated 09/02/22 @ 20:49 by Shoaib Humphreys MD) Gouty arthritis of left great toe (Acute) Acute pharyngitis (Acute) Head injury (Acute) Closed cervical spine fracture (Acute) Contusion (Acute) Cervical muscle strain (Acute) Medical History Anemia Aortic stenosis Atrial flutter CAD (coronary artery disease) Degeneration of cervical intervertebral disc Dyspnea on exertion Gout History of nephrectomy Hx of atrial flutter Hx of gastric ulcer Hx of non-ST elevation myocardial infarction (NSTEMI) Hypothyroidism IBS (irritable bowel syndrome) Intermittent claudication Internal hemorrhoids Lumbar back pain Myalgia Paresthesia Primary osteoarthritis, left shoulder Renal insufficiency Right flank pain Surgical History Fracture, Open Treatment left femor ORIf Nephrectomy left Replacement of aortic valve Social History Smoking/Tobacco Use Status: Former Tobacco Use Smoking risk assessment performed?: Yes Alcohol Intake: current Alcohol Intake frequency: 0-2 drinks per day Alcohol type: hard liquor Drug use: Never Substance use type: does not use Do you feel safe at home: Yes Do you feel safe in your relationship?: Yes Exam Narrative Exam Narrative: General: Well-appearing in no acute distress speaking in complete sentences. Head: Normocephalic, atraumatic. Eye: Pupils equal, round reactive to light. Extraocular eye movements intact. No conjunctival injection. No scleral icterus. Ear, nose, mouth, throat: Mildly erythematous posterior oropharynx. Uvula midline. Normal voice, handling secretions normally. Neck: Trachea midline. Cardiovascular: Well-perfused distal extremities. Respiratory: Nonlabored respiration. Clear lungs bilaterally. Gastrointestinal: Nondistended abdomen. Musculoskeletal: On the left great toe there is warmth and swelling. Patient is able to flex and extend his left great toe. No lacerations. No signs of trauma. Skin: Normal for age and race, grossly normal temperature and turgor. No acute rash. Neurologic: Alert and appropriate, no apparent acute deficits. Psychiatric: Mood and manner are appropriate. Grooming and personal hygiene are appropriate. Course Vital Signs Vital signs: Vital Signs Temperature 36.9 C 09/02/22 18:26 Pulse 57 L 09/02/22 18:26 Respiratory Rate 15 09/02/22 18:26 Blood Pressure 166/74 H 09/02/22 18:26 Pulse Oximetry 99 09/02/22 18:26 Temperature 36.9 C 09/02/22 18:26 Temperature Source Temporal Artery Scan 09/02/22 18:26 Pulse 57 L 09/02/22 18:26 Respiratory Rate 15 09/02/22 18:26 Blood Pressure 166/74 H 09/02/22 18:26 Blood Pressure Position Sitting 09/02/22 18:26 Pulse Oximetry 99 09/02/22 18:26 Oxygen Delivery Method Room Air 09/02/22 18:26 Oxygen Flow Rate 0 09/02/22 18:26 Pain Level 5 09/02/22 18:26
[2022-09-02] MEDS: Colchicine 0.6 MG TAB PO (20:59)
[2022-09-02] MEDS: Acetaminophen 500 MG TAB 1000 MG PO (21:00)
[2022-09-02] MEDS: Colchicine 0.6 MG TAB 1.2 MG PO (21:00)
--- NOTE | 2022-09-02 21:16 | DI.VRAD_ITS ---
PROCEDURE INFORMATION: Exam: XR Left Toe(s) Exam date and time: 09/02/2022 8:54 PM Age: 77 years old Clinical indication: Swelling or effusion of joint; Foot and other: Great toe TECHNIQUE: Imaging protocol: Radiologic exam of the left toes. Views: Minimum 2 views. COMPARISON: CR XR FOOT LT COMPLETE 01/05/2020 5:35 PM FINDINGS: Bones/joints: Degenerative changes in the 1st metatarsal-phalangeal joint and IP joint. There is no evidence of acute fracture.There is no evidence of malalignment or dislocation. Soft tissues: Soft tissue swelling of the great toe IMPRESSION: There is no evidence of acute fracture.There is no evidence of malalignment or dislocation. Dictated and Authenticated by: Derrick Healy MD. Ordering:DONNA Cramer MD
== END 2022-09-02 21:13 | disposition home or self-care (01) ==
PROVIDERS: Emergency Provider Emergency Medicine; PCP Internal Medicine
DX: M10.9 Gout, unspecified (principal); J02.9 Acute pharyngitis, unspecified
CPT/HCPCS: 99283; 73660

== ENCOUNTER → 2022-11-25 00:21 | Outpatient (CLI) | payer MEDICARE, OTHER, SELFPAY ==
--- NOTE | 2022-11-25 | DI.US_ITS ---
Exam(s) US AAA DIAGNOSTIC EXAM: US AAA DIAGNOSTIC CLINICAL HISTORY: AAA FU I71.4 COMPARISON: Abdominal MRI February 2019 was reviewed. FINDINGS: Again noted is an infrarenal fusiform abdominal aortic aneurysm which is located in the inferior aspe ct of the abdominal aorta and exhibits a maximum diameter of 5 cm, this representing increased in siz e by 1 cm when compared to the MRI scan of 4 years ago. Arteriomegaly of the common iliac arteries is also noted. Proximal right common iliac artery exhibit s aneurysmal dilatation to 2.5 cm. Left common iliac artery also exhibits increased size at 2.1 cm. IMPRESSION: 1. There is a significant abdominal aortic aneurysm which measures 5 cm diameter, this representing 1 cm increased in size when compared to measurement on MRI scan of February 2019. 2. There is also aneurysmal dilatation of the right common iliac artery measures 2.5 cm. Also elemen t of dilatation of the left common iliac artery which measures 2.1 cm diameter. DATA REPOSITORY:
== END ==
PROVIDERS: PCP Internal Medicine; Visit Provider Internal Medicine
DX: I71.40 Abdominal aortic aneurysm, without rupture, unspecified (principal)
CPT/HCPCS: 76775

== ENCOUNTER 2023-03-24 16:47 | Outpatient (REF) | payer MEDICARE, OTHER, SELFPAY ==
--- NOTE | 2023-03-24 08:30 | SKI_PTH ---
PATIENT: Mark Anthony Huffman LOC: [facility] U#:[id number] AGE/SX: 77/M ROOM: RE03/24/[address]: Son Serna DO : 1945 BED: DIS: 03/24/2023 SPEC #: [id number] RECD: 03/27/23 12:40 STATUS: FREDERICK REQ #: [id number] COSME: 03/24/23 08:[address]: Son Serna DEPT: Surgical Specimen RECD BY: Zulma Coles ENTERED: 03/27/23 12:41 SP TYPE: ELEANOR PALMER DR: Ajay Kwan Tissues: 1 - SKIN BIOPSY(SHAVE/PUNCH) 2 - SKIN BIOPSY(SHAVE/PUNCH) Procedures: SKIN LEVEL 4 Comments: [id number]
== END 2023-03-24 16:48 | disposition home or self-care (01) ==
LOC: LBN 16:47
PROVIDERS: PCP Internal Medicine; Visit Provider Otolaryngology Otolaryngology/Facial Plastic Surgery
DX: C44.222 Squamous cell carcinoma of skin of right ear and external auricular canal (principal); L82.1 Other seborrheic keratosis
CPT/HCPCS: 88305

== ENCOUNTER 2023-07-27 17:19 | Outpatient (REF) | payer MEDICARE, OTHER, SELFPAY ==
[2023-07-27 20:35] LABS: Abs Immature Grans 0.01 10^3/uL (0.0-0.06); Absolute Basophil Count 0.04 10^3/uL (0.0-0.2); Absolute Eosinophil Count 0.19 10^3/uL (0.0-0.7); Absolute Lymphocyte Count 0.63 10^3/uL (1.2-3.4); Absolute Monocyte Count 0.48 10^3/uL (0.1-0.8); Absolute Neutrophil Count 3.17 10^3/uL (1.2-6.7); Basophils % 0.9; Eosinophils % 4.2; HCT 34.4 % (40.0-50.0); HGB 11.6 g/dL (13.5-17.5); Immature Grans % 0.2; Lymphocytes % 13.9; MCH 34.4 pg (27.0-33.0); MCHC 33.7 % (32.0-36.0); MCV 102 fL (80-95); MPV 9.5 fL (8.0-11.0); Monocytes % 10.6; Neutrophils % 70.2; Platelet Count 135 10^3/uL (130-400); RBC 3.37 10^6/uL (4.36-5.78); RDW 13.6 % (11.8-14.1); RDW-SD 51.4 fL; WBC 4.52 10^3/uL (4.4-10.8)
[2023-07-27 20:54] LABS: ALT 20 U/L (16-63); AST 14 U/L (15-37); Albumin 4.1 g/dL (3.4-5.0); Alkaline Phosphatase 137 U/L (46-116); Anion Gap 7.3 mmol/L (3-11); BUN 36 mg/dL (7-18); Bilirubin, Total 0.4 mg/dL (0.2-1.0); CO2 28.7 mmol/L (21.0-32.0); CREATININE 1.8 mg/dL (0.70-1.30); Calcium 8.8 mg/dL (8.5-10.1); Chloride 106 mmol/L (98-107); Estimated GFR 37.58 (mL/min/1.73m2); Glucose 97 mg/dL (74-106); Sodium 142 mmol/L (136-145); TSH 1.93 uIU/Ml (0.36-3.74); Total Protein 7.1 g/dL (6.4-8.2)
== END 2023-07-27 17:20 | disposition home or self-care (01) ==
LOC: NCHCN 17:19
PROVIDERS: PCP Internal Medicine; Visit Provider Family Medicine
DX: I10 Essential (primary) hypertension (principal); E03.9 Hypothyroidism, unspecified; R20.2 Paresthesia of skin; Z51.81 Encounter for therapeutic drug level monitoring; Z79.899 Other long term (current) drug therapy
CPT/HCPCS: 80053; 80156; 84443; 85025

== ENCOUNTER 2024-01-25 16:07 | Outpatient (REF) | payer MEDICARE, OTHER, SELFPAY ==
[2024-01-25 17:27] LABS: Anion Gap 11.2 mmol/L (3-11); BUN 35 mg/dL (7-18); CO2 26.8 mmol/L (21.0-32.0); CREATININE 1.8 mg/dL (0.70-1.30); Calcium 9.1 mg/dL (8.5-10.1); Chloride 107 mmol/L (98-107); Estimated GFR 37.58 (mL/min/1.73m2); Glucose 108 mg/dL (74-106); Potassium 4.7 mmol/L (3.5-5.1); Sodium 145 mmol/L (136-145)
== END 2024-01-25 16:08 | disposition home or self-care (01) ==
LOC: NCHCN 16:07
PROVIDERS: PCP Family Medicine; Visit Provider Family Medicine
DX: I10 Essential (primary) hypertension (principal)
CPT/HCPCS: 80048

== ENCOUNTER 2024-07-12 15:33 | Outpatient (CLI) | payer MEDICARE, OTHER, SELFPAY | END 2024-07-12 15:34 | disposition home or self-care (01) | PROVIDERS: PCP Family Medicine; Visit Provider Nurse Practitioner Family | DX: Z12.5 Encounter for screening for malignant neoplasm of prostate (principal) | CPT/HCPCS: 36415; 84153 ==

== ENCOUNTER 2024-07-17 10:24 | Outpatient (CLI) | payer MEDICARE, OTHER, SELFPAY ==
[2024-07-17 10:16] LABS: Abs Immature Grans 0.01 10^3/uL (0.0-0.06); Absolute Basophil Count 0.03 10^3/uL (0.0-0.2); Absolute Eosinophil Count 0.26 10^3/uL (0.0-0.7); Absolute Lymphocyte Count 0.53 10^3/uL (1.2-3.4); Absolute Monocyte Count 0.36 10^3/uL (0.1-0.8); Absolute Neutrophil Count 3.45 10^3/uL (1.2-6.7); Basophils % 0.6 %; Eosinophils % 5.6 %; HCT 34.7 % (40.0-50.0); HGB 11.3 g/dL (13.5-17.5); Immature Grans % 0.2 %; Lymphocytes % 11.4 %; MCH 33.8 pg (27.0-33.0); MCHC 32.6 % (32.0-36.0); MCV 104 fL (80-95); MPV 8.8 fL (8.0-11.0); Monocytes % 7.8 %; Neutrophils % 74.4 %; Platelet Count 122 10^3/uL (130-400); RBC 3.34 10^6/uL (4.36-5.78); RDW 13.8 % (11.8-14.1); RDW-SD 52.9 fL; WBC 4.64 10^3/uL (4.4-10.8)
[2024-07-17 10:43] LABS: D-Dimer 1994 ng/mlFEU (<500)
[2024-07-17 11:08] LABS: ALT 16 U/L (16-63); AST 14 U/L (15-37); Albumin 3.8 g/dL (3.4-5.0); Alkaline Phosphatase 131 U/L (46-116); Anion Gap 4.2 mmol/L (3-11); BUN 31 mg/dL (7-18); Bilirubin, Total 0.5 mg/dL (0.2-1.0); CO2 32.8 mmol/L (21.0-32.0); CREATININE 1.8 mg/dL (0.70-1.30); Calcium 9.2 mg/dL (8.5-10.1); Chloride 106 mmol/L (98-107); Estimated GFR 37.35 (mL/min/1.73m2); Glucose 115 mg/dL (74-106); NT-proBNP 345 pg/mL (<300); Potassium 4.8 mmol/L (3.5-5.1); Sodium 143 mmol/L (136-145); TSH (W/Ref FT4) 2.12 uIU/mL (0.36-3.74); Total Protein 7.3 g/dL (6.4-8.2)
[2024-07-17 11:25] LABS: Calculated LDL 68 mg/dL (<100); Cholesterol 139 mg/dL (<200); HDL Cholesterol 57 mg/dL (>or=40); Triglyceride 72 mg/dL (<150)
== END 2024-07-17 10:25 | disposition home or self-care (01) ==
LOC: LBO 10:25
PROVIDERS: PCP Family Medicine; Visit Provider Nurse Practitioner Family
DX: I25.10 Atherosclerotic heart disease of native coronary artery without angina pectoris (principal); E03.9 Hypothyroidism, unspecified; R60.9 Edema, unspecified
CPT/HCPCS: 80053; 80061; 83880; 84443; 85025; 85379; 93971

== ENCOUNTER 2024-07-17 15:28 | Outpatient (CLI) | payer MEDICARE, OTHER, SELFPAY ==
--- NOTE | 2024-07-17 | DI.US_ITS ---
Exam(s) US LOWER EXTREMITY VENOUS RT EXAM: US LOWER EXTREMITY VENOUS RT CLINICAL HISTORY: D-DIMER ABOVE REFERENCE RANGE, R79.1 ABN COAGULATION PROFILE TECHNIQUE: Right lower extremity venous ultrasound performed using grayscale, color-flow, and spectr al Doppler analysis. COMPARISON: No exams were available for comparison FINDINGS: The right common femoral, femoral and popliteal veins demonstrate normal compressibility, augmentatio n, and color Doppler. The posterior tibial and peroneal veins are patent. The saphenofemoral junctio n is unremarkable. There is no evidence of a Cisneros cyst. The soft tissues are unremarkable. IMPRESSION: No evidence of a right lower extremity DVT. DATA REPOSITORY:
== END 2024-07-17 15:48 ==
LOC: DI 15:29
PROVIDERS: PCP Family Medicine; Visit Provider Nurse Practitioner Family
DX: R79.1 Abnormal coagulation profile (principal)
CPT/HCPCS: 93971

== ENCOUNTER 2025-01-03 16:33 | Outpatient (REF) | payer MEDICARE, OTHER, SELFPAY ==
--- NOTE | 2025-01-03 14:26 | SKI_PTH ---
PATIENT: Mark Anthony Huffman LOC: [facility] U#:[id number] AGE/SX: 79/M ROOM: RE01/03/[address]: SANDY Bravo : 1945 BED: DIS: 01/03/2025 SPEC #: [id number] RECD: 01/06/25 12:24 STATUS: FREDERICK REMylene #: [id number] COSME: 01/03/25 14:[address]: Chato Tamez DEPT: Surgical Specimen RECD BY: Zulma Coles ENTERED: 01/06/25 12:24 SP TYPE: ELEANOR PALMER DR: Satnam Torrez Tissues: 1 - SKIN BIOPSY(SHAVE/PUNCH) Procedures: SKIN LEVEL 4 Comments: [id number]
== END 2025-01-03 16:34 | disposition home or self-care (01) ==
LOC: LBN 16:33
PROVIDERS: PCP Family Medicine; Visit Provider Physician Assistant
DX: L82.1 Other seborrheic keratosis (principal)
CPT/HCPCS: 88305

== ENCOUNTER 2025-02-12 15:43 | Outpatient (REF) | payer MEDICARE, OTHER, SELFPAY ==
[2025-02-12 21:02] LABS: ALT 19 U/L (16-63); AST 15 U/L (15-37); Albumin 4.1 g/dL (3.4-5.0); Alkaline Phosphatase 134 U/L (46-116); Anion Gap 8.5 mmol/L (3-11); BUN 37 mg/dL (7-18); Bilirubin, Total 0.4 mg/dL (0.2-1.0); CO2 29.5 mmol/L (21.0-32.0); Calcium 8.8 mg/dL (8.5-10.1); Chloride 105 mmol/L (98-107); Glucose 89 mg/dL (74-106); Potassium 4.2 mmol/L (3.5-5.1); Sodium 143 mmol/L (136-145); Total Protein 7.4 g/dL (6.4-8.2)
== END 2025-02-12 15:44 | disposition home or self-care (01) ==
LOC: NCHCN 15:43
PROVIDERS: PCP Family Medicine; Visit Provider Family Medicine
DX: N18.30 Chronic kidney disease, stage 3 unspecified (principal)
CPT/HCPCS: 80053